=== PATIENT | female | born 1985 | race Caucasian/White ===

== ENCOUNTER 2022-07-11 11:32 | Emergency (ER) | payer BC, SELFPAY ==
[2022-07-11 11:40] VITALS: BP 99/64; PULSE 78; RESP 18; TEMP 36.1; O2SAT 99; BMI 25.1
--- NOTE | 2022-07-11 12:36 | ED.GENADULT ---
HPI - General Adult General Chief complaint: Weakness Stated complaint: Passed out at home Time Seen by Provider: 07/11/22 12:11 History of Present Illness HPI narrative: This 36-year-old female comes in reporting lightheadedness that resulted in a syncopal event. She states she was riding in a car and began to feel lightheaded and warm. When she arrived home she thought she could make it into the house so she jumped out from the car at which time she became more lightheaded and had loss of consciousness. Her significant other was there to catcher so she did not fall and hurt herself. She laid on the ground and appeared to be rather pale in her complexion. She was incontinent of urine. She regained consciousness in about 30 seconds. She does not have a prior history of syncope. She denies having any alcohol or street drugs. She has not had any fevers or sign of infection. She does not take any antihypertensive medicines. She is on some psychotropic medicines that are not new for her. She states that she did have breakfast and fluids this morning. Related Data Home Medications Medication Instructions Recorded Confirmed Abilify 07/11/22 Wellbutrin 07/11/22 Allergies Allergy/AdvReac Type Severity Reaction Status Date / Time No Known Drug Allergies Allergy Verified 07/11/22 11:45 Review of Systems Status of ROS: Reports: 10 or more systems reviewed and unremarkable except as noted in History and below Narrative: Constitutional: No fevers, no weight gain or loss. Eyes: No discharge. No vision changes. HENT: No congestion, no sore throat, no ear pain. Cardiovascular: No chest pain, no palpitations. Respiratory: No shortness of breath, no wheezes, no cough. Gastrointestinal: No abdominal pain, no vomiting, no diarrhea. Genitourinary: No dysuria, no hematuria. Musculoskeletal: Normal range of motion. Skin: No rashes, no pruritis. Neurological: No weakness, sensory change, speech change. Syncopal event as described above. Endo/Heme/Allergies: No bruising or bleeding. No polydipsia. Pysch: no suicidality, no anxiety, no insomnia. All other systems reviewed and are negative. PFSH PFSH Social History Smoking Status: Smoker, status unknown How often do you have a drink containing alcohol: never AUDIT-C Alcohol total score: 0 Non-prescribed substance use: denies use Exam Narrative: Exam Narrative: Constitutional: Well-developed, well-nourished, no acute distress. HEENT: Normocephalic, atraumatic. Neck: Normal range of motion. Nontender. Supple. Heart: Regular. No murmurs. Normal rate. Intact distal pulses. Lungs: Clear to auscultation. No chest discomfort. No wheezes, rhonchi, or rales. Abdomen: Normal bowel sounds. Nontender. No rebound tenderness. Genitalia: Deferred. Back: No midline tenderness. Normal range of motion. Extremities: Normal range of motion. No injury. Skin: Intact. No rash. Warm. No erythema or pallor. Neurologic: No altered sensation. No weakness. Alert and oriented. Psychiatric: No suicidality. No anxiety or depression. No insomnia. Nursing notes and vitals signs are reviewed. Const: Vital Signs, click to edit/add: Vital Signs - 24 hr 07/11/22 11:40 Temperature 96.9 F L Pulse Rate [Right Pulse Oximeter] 78 Respiratory Rate 18 Blood Pressure [Ri ght Upper Arm] 99/64 Pulse Oximetry 99 Oxygen Delivery Me thod Room Air Course Vital Signs Vital signs: Initial Vital Signs Temperature 96.9 F L 07/11/22 11:40 Temperature Source Temporal Artery Scan 07/11/22 11:40 Pulse Rate 78 07/11/22 11:40 Respiratory Rate 18 07/11/22 11:40 Blood Pressure 99/64 07/11/22 11:40 Blood Pressure Mean 75 07/11/22 11:40 Blood Pressure Position Sitting 07/11/22 11:40 Pulse Oximetry 99 07/11/22 11:40 Oxygen Delivery Method 07/11/22 11:40 Vital Signs Temperature 96.9 F L 07/11/22 11:40 Pulse Rate 78 07/11/22 11:40 Respiratory Rate 18 07/11/22 11:40 Blood Pressure 99/64 07/11/22 11:40 Pulse Oximetry 99 07/11/22 11:40 Oxygen Delivery Method 07/11/22 11:40 Temperature 96.9 F L 07/11/22 11:40 Pulse Rate 78 07/11/22 11:40 Respiratory Rate 18 07/11/22 11:40 Blood Pressure 99/64 07/11/22 11:40 Pulse Oximetry 99 07/11/22 11:40 Oxygen Delivery Method 07/11/22 11:40 Medical Decision Making MDM Narrative Medical decision making narrative: This patient had a syncopal event prior to arrival. She arrives with normal vital signs however her blood pressure is somewhat low at 99/64. I did discuss diagnostic and treatment options with the patient. She agreed to have an IV placed received fluids and check her blood. Three attempts were made to insert an IV but these were unsuccessful. At this point the patient decided against further attempts. She is maintaining normal vital signs and feels back to normal. Most likely given her normal state of health these lab results are not likely to explain her lightheadedness and syncopal event today. I did describe signs and symptoms that would indicate a need for return and re-evaluation. Discharge Plan Discharge Clinical Impression: Syncope Patient Disposition: Home, Self-Care Condition: Improved Additional Instructions: Take plenty of fluids. Increase activity as tolerated. Follow up with MD or return if recurrent or worsening symptoms happen. Prescriptions: No Action Wellbutrin Abilify Follow Up/Referrals: Provider,Not a Local [Primary Care Provider] - Stand Alone Forms: [employer] Info Instructions
--- NOTE | 2022-07-11 13:23 | ED.NURSE ---
Anesthesia called for difficult IV start. Warm blankets applied to BUE.
[2022-07-11 14:24] VITALS: BP 107/72; PULSE 78; RESP 18; TEMP 36.1
--- NOTE | 2022-07-11 14:25 | ED.NURSE ---
Anesthesia unable to start IV with U/S guidance. Pt refusing additional bloodwork/treatment. informed. spoke with Pt. VSS. Pt d/c'ed ambulatory, with SO, tolerates well.
== END 2022-07-11 14:25 | disposition home or self-care (01) ==
PROVIDERS: Emergency Provider Emergency Medicine Emergency Medical Services
DX: R55 Syncope and collapse (principal)
CPT/HCPCS: 80048; 85025; 99283; 99284

== ENCOUNTER 2024-05-30 10:52 | Outpatient (CLI) | payer BC, SELFPAY ==
--- OUTSIDE RECORDS SUMMARY | 2024-05-31 13:47 | XMS_ITS | Clinical Summary ---
Author Organization [place] Address [address] [facility] [place] [address] Care Team Providers Care Electrical Assembler Name Role Phone Esha Vicente MD Primary Care Provider [phone] Allergies No known active allergies Medications Medication Sig Dispensed Refills Start Date End Date Status busPIRone (BUSPAR) 5 MG tablet Take 5 mg by mouth 2 times daily Active LamoTRIgine (LAMICTAL) 200 MG TB24 Take 200 mg by mouth daily 12/28/2018 Active desvenlafaxine (PRISTIQ) 50 MG 24 hr tablet Take 50 mg by mouth daily 12/28/2018 Active LORazepam (ATIVAN) 1 MG tablet Take 1 mg by mouth daily as needed 12/28/2018 Active norgestim-eth estrad triphasic (ORTHO TRI-CYCLEN/TRI-SPRINT EC) 0.18/0.215/0.25 MG-35 MCG tabletIndications:Irr egular menses Take 1 tablet by mouth daily 84 tablet 3 02/07/2019 Active Active Problems Problem Noted Date Diagnosed Date Severe episode of recurrent major depressive disorder, without psychotic features 01/07/2017 JIMMY (generalized anxiety disorder) 01/07/2017 HSV (herpes simplex virus) infection 03/11/2016 Overview: Start at 34 weeks due to deliveries at 37 weeks. CARDIOVASCULAR SCREENING; LDL GOAL LESS THAN 160 08/04/2010 ASCUS on Pap smear 04/02/2009 Overview: 07/31/08:Pap--ASCUS, neg HPV. Repeat pap 1 year. Migraine headache 07/31/2008 Overview: May 02, 2010 improved. (Problem list name updated by automated process. Provider to review and confirm.) Tobacco abuse 04/04/2008 Overview: May 02, 2010 addressed. Resolved Problems Problem Noted Date Diagnosed Date Resolved Date Severe episode of recurrent major depressive disorder, without psychotic features 11/04/201612/2016 Supervision of other normal , antepartum 04/23/2016 01/05/2017 GBS (group B Streptococcus c arrier), +RV culture, currently 12/17/2014 02/05/2015 Encounter for supervision of other normal 10/10/2009 05/02/2010 Overview: Diagnosis updated by automated process. Provider to review and confirm. ASCUS on Pap smear 08/07/2008 05/200 9 Overview: HPV positive- low ridk- dx pap follow up in 08/200906/28/2009:Pap--ASCUS, +High Risk HPV outside location 01/15/11:Pap--NIL 05/09/13:Pap--NIL. Consider Q3 year pap screening after 1 more consecutive normal pap result Neck pain 07/31/2008 05/02/2010 Overview: July 31, 2008 probably from carrying her 36 # son. Activity as tolerated, follow up if not better after PT, sooner if worse, if resolved follow up will be prn. Immunizations Name Administration Dates Next Due HepB 07/11/2002,12/10/2001,06/03/2000 Historical DTP/aP 04/08/1991, 7,06/14/1986, 986,02/06/1986 Influenza (H1N1) 08/06/2009 Influenza (IIV3) PF 06/24/2011, 0,07/10/2009, 008,08/31/2007,07/31/2005 Influenza Vaccine >6 months,quad, PF ,06/25/2017,07/03/2016, 014 MMR 06/01/1997,03/14/1987 Mantoux Tuberculin Skin Test 08/14/2014,07/07/20 11,06/24/2011 OPV, trivalent, live 04/08/1991,06/03/19 87,04/10/1986, 986 TDAP Vaccine (Adacel) 05/23/2016,11/13/2014,06/2008 Tetanus 09/12/2009,10/05/1997,06/01/1997 Varicella 05/17/1999,03/08/1999 Family History Medical History Relation Comments Genitourinary Problems Father kidney pr oblems Alcohol/Drug Maternal Grandfather alcohol Depression Maternal Grandfather Breast Cancer Paternal Grandmother Relation Status Comments Daughter Alive adopted out Father Alive Maternal Grandfather Alive Maternal Grandmother Alive Mother Alive Paternal Grandfather Alive Paternal Grandmother Alive Son 1 Alive Son 2 Alive Social History Tobacco Use Types Packs/Day Years Used Date Smoking Tobacco: Every Day Cigarettes Other Smokeless Tobacco: Never Tobacco Cessation:Ready to Q uit: Yes; Counseling Given: Yes Comments:Patient using E-cig Alcohol Use Standard Drinks/Week Comments Yes 0 (1 standard drink = 0.6 oz pur e alcohol) 1-2 liter/week of whiskey PHQ-2 Answer Date Recorded PHQ-2 Score 5 10/12/2018 Adolescent Education Answer Date Record ed Getting School Help Needed Not on file 07/12 Sex and Gender Information Value Date Recorded Sex Assigned at Not on file Gender Identity Not on file Sexual Orientation Not on file Last Filed Vital Signs Vital Sign Reading Time Taken Comments Blood Pressure 114/81 10/06/2023 12:16 AM REGISTERED NURSE CARDIAC Pulse 95 10/06/2023 12:16 AM REGISTERED NURSE CARDIAC Temperature 35.9 ??C (96.7 ??F) 10/05/2023 8:19 PM CS T Respiratory Rate 20 10/05/2023 8:19 PM REGISTERED NURSE CARDIAC Oxygen Saturation 97% 10/06/2023 12:16 AM REGISTERED NURSE CARDIAC Inhaled Oxygen Concentration - - Weight 78.1 kg (172 lb 4 oz) 02/07/2019 2:01 PM CDT Height 172.7 cm (5' 8) 02/07/2019 2:01 PM CDT Body Mass Index 26.19 02/07/2019 2:01 PM CDT Plan of Treatment Health Maintenance Due Date Last Done Comments ADVANCE CARE PLANNING 1985 ANNUAL REVIEW OF HM ORDERS 1985 Pneumococcal Vaccine: Pediatrics (0 to 5 Years) and At-Risk Patients (6 to 64 Years) (1 of 2 - PCV) 12/07/1991 PHQ-9 09/15/2018 03/16/2018, 11/2017, 10/30/2017, Additional history exists HPV TEST 03/16/2021 03/16/2018 PAP 03/16/2021 03/16/2018, 06/05, 05/09/2013, Additional history exists YEARLY PREVENTIVE VISIT 08/16/2022 08/16/20, 03/16/2018, 10/30/2017, Additional history exists COVID-19 Vaccine ( season) 2023 02/13/2021, 01/23/2021 INFLUENZA VACCINE (#1) 2024 , 08/03/2020, 11/11/2019, Additional history exists DTAP/TDAP/TD IMMUNIZATION (10 - Td or Tdap) 05/23/2026 05/23/2016, 11/13/2014, 09/12/2009, Additional history exists GLUCOSE 10/05/2026 10/05/2023, 02/2018, 02/20/2017, Additional history exists HEPATITIS B IMMUNIZATION Completed 002, 07/11/2002, 07/11/2002, Additional history exists HEPATITIS C SCREENING Completed 07/31/2008, 008 MIGRAINE ACTION PLAN Completed 03/04/2013 DEPRESSION ACTION PLAN Completed 8, 03/16/2018, 01/05/2017, Additional history exists HIV SCREENING Completed 02/07/2019, 04/2016, 06/19/2014, Additional history exists HPV IMMUNIZATION Aged Out No longer e ligible based on patient's age to complete this topic MENINGITIS IMMUNIZATION Aged Out No l onger eligible based on patient's age to complete this topic RSV MONOCLONAL ANTIBODY Aged Out No l onger eligible based on patient's age to complete this topic Procedures Procedure Name Priority Date/Time Associated Diagnosis Comments BASIC METABOLIC PANEL STAT 10/05/2023 10:40 PM REGISTERED NURSE CARDIAC HIV ANTIGEN ANTIBODY COMBO Routine 02/07/2019 2:53 PM CDT Screen for STD (sexually transmitted disease) HPV HIGH RISK TYPES DNA CERVICAL Routine 03/16/2018 11:15 AM CDT Screening for human papillomavirus PAP IMAGED THIN LAYER SCREEN Routine 03/16/2018 11:06 AM CDT Screening for cervical cancer HCL HEPATITIS C VIRUS ANTIBODY Routine 07/31/2008 3:11 PM CDT STD (Sexually Transmitted Disease) from Last 3 Months or Most Recently Relevant to Health Maintenance Results * Basic metabolic panel (10/05/2023 10:40 PM REGISTERED NURSE CARDIAC) Sodium 138 135 - 145 mmol/L 10/05/2023 11:10 PM REGISTERED NURSE CARDIAC [facility] Comment:Reference intervals for this test were updated on 06/30/2023 to more accurately reflect our healthy population. There may be differences in the flagging of prior results with similar values performed with this method. Interpretation of those prior results can be made in the context of the updated reference intervals. Potassium 3.8 3.4 - 5.3 mmol/L 10/05/2023 11:10 PM REGISTERED NURSE CARDIAC [facility] Chloride 100 98 - 107 mmol/L 10/05/2023 11:10 PM REGISTERED NURSE CARDIAC [facility] Carbon Dioxide (CO2) 24 22 - 29 mmol/L 10/05/2023 11:10 PM REGISTERED NURSE CARDIAC [facility] Anion Gap 14 7 - 15 mmol/L 10/05/2023 11:10 PM REGISTERED NURSE CARDIAC [facility] Urea Nitrogen 11.1 6.0 - 20.0 mg/dL 10/05/2023 11:10 PM REGISTERED NURSE CARDIAC [facility] Creatinine 0.70 0.51 - 0.95 mg/dL 10/05/2023 11:10 PM REGISTERED NURSE CARDIAC [facility] GFR Estimate >90 >60 mL/min/1. 73m2 10/05/2023 11:10 PM REGISTERED NURSE CARDIAC [facility] Calcium 9.1 8.6 - 10.0 mg/dL 10/05/2023 11:10 PM REGISTERED NURSE CARDIAC N [facility] Glucose 92 70 - 99 mg/dL 10/05/2023 11:10 PM REGISTERED NURSE CARDIAC [facility] Blood BLOOD SPECIMEN / Unknown Venipuncture / Unknown 10/05/2023 10:40 PM REGISTERED NURSE CARDIAC 10/05/2023 10:44 PM REGISTERED NURSE CARDIAC Lita Sher MD LAB - BLOOD ORDERABL ES [facility] [address] [place], [place] [id number] [place] [address] * HIV Antigen Antibody Combo (02/07/2019 2:53 PM CDT) HIV Antigen Antibody Combo Nonreactive NR^Nonrea ctive 02/08/2019 11:40 AM CDT [facility] Comment:HIV-1 p24 Ag & HIV-1 /HIV-2 Ab Not Detected Blood specimen (specimen) 02/07/2019 2:53 PM CDT 02/07/2019 2:54 PM CDT Esha Vicente MD LAB - BLOOD ORDERABL ES [facility] [address] [place] [address] * HPV High Risk Types DNA Cervical (03/16/2018 11:15 AM CDT) HPV Source SurePath 03/16/2018 11:06 AM CDT [facility] HPV 16 DNA Negative NEG^Nega tive 03/22/2018 12:40 PM CDT [facility] HPV 18 DNA Negative NEG^Nega tive 03/22/2018 12:40 PM CDT [facility] Other HR HPV Negative NEG^Nega tive 03/22/2018 12:40 PM CDT [facility] Final Diagnosis This patient's sample is negative for HPV DNA. 03/22/2018 12:40 PM CDT [facility] Comment: This test was developed and its performance characteristics determined by the [facility]. It has not been cleared or approved by the FDA. The laboratory is regulated under CLIA as qualified to perform high-complexity testing. This test is used for clinical purposes. It should not be regarded as investigational or for research. (Note) METHODOLOGY: ??The Petra naseem 4800 system uses automated extraction, simultaneous amplification of HPV (L1 region) and beta-globin, ?? followed by ??real time detection of fluorescent labeled HPV and beta globin using specific oligonucleotide probes . The test specifically identifies types HPV 16 DNA and HPV 18 DNA while concurrently detecting the rest of the high risk types (31, 33, 35, 39, 45, 51, 52, 56, 58, 59, 66 or 68). COMMENTS: ??This test is not intended for use as a screening device for women under age 30 with normal cervical cytology. ??Results should be correlated with cytologic and histologic findings. Close clinical followup is recommended. Specimen Description Cervical Cells 03/19/2018 9:19 AM CDT [facility] Comment:[id number] Cervical Cells 03/16/2018 11 :15 AM CDT 03/16/2018 11:41 AM CDT Esha Vicente MD LAB - BLOOD ORDERABL ES [id number] [place] [address] * Pap imaged thin layer screen with HPV - recommended age 30 - 65 (03/16/2018 11:06 AM CDT) PAP JON Shannon Report Patient Name: SCARLET ENGLISH MR#: [id number] Specimen #: [id number] Collected: 03/16/2018 Received: 03/17/2018 Reported: 03/18/2018 10:21 Ordering Phy(s): ESHA VICENTE For improved result formatting, select 'View Enhanced Report Format' under Linked Documents section. SPECIMEN/STAIN PROCESS: Pap imaged thin layer prep screening (Surepath, FocalPoint with guided screening) ? Pap-Cyto x 1, HPV ordered x 1 SOURCE: Cervical, endocervical Pap imaged thin layer prep screening (Surepath, FocalPoint with guided screening) SPECIMEN ADEQUACY: Satisfactory for evaluation. -Transformation zone component absent. CYTOLOGIC INTERPRETATION: Negative for intraepithelial lesion or malignancy Electronically signed out by: STERLING Gage (ASCP) Processed and screened at [facility] CLINICAL HISTORY: LMP: 02/27/2018 Previous normal pap Date of Last Pap: 06/19/2014, Papanicolaou Test Limitations: ??Cervical cytology is a screening test with limited sensitivity; regular screening is critical for cancer prevention; Pap tests are primarily effective for the diagnosis/preventi on of squamous cell carcinoma, not adenocarcinomas or other cancers. TESTING LAB LOCATION: [address] [phone] COLLECTION SITE: Client: ?? [facility] Location: [facility] [place] Cytologic material (specimen) 03/16/2018 11:06 AM CDT 03/17/2018 9:30 AM CDT Esha Vicente MD LAB - [facility] SPECIMEN [facility] * HCV ANTIBODY (07/31/2008 3:11 PM CDT) Hepatitis C Antibody Negative NEG [facility] 07/31/2008 3:11 PM CDT 07/31/2008 3:12 PM CDT Esha Vicente MD LABORATORY [facility] from Last 3 Months or Most Recently Relevant to Health Maintenance Care Teams Electrical Assembler Relationship Specialty Start Date End Date Esha Vicente MD PCP - General Family Practice 02/10/17 Andres Gibbons MA, PSY[facility]IATR[facility] [address] [place] [address]. [id number] Therapist Licensed Mental Health 10/05/23
--- OUTSIDE RECORDS SUMMARY | 2024-05-31 13:48 | XMS_ITS | Encounter Summary ---
Author Organization [place] Address [address] [facility] [place] [address] Care Team Providers Care Bottom Filler Name Role Phone Esha Vicente MD Primary Care Provider [phone] Esha Vicente MD Unavailable [phone] Esha Vicente MD Unavailable [phone] Reason for Visit * Reason Onset Date Comments Refill Request 10/14/2017 Encounter Details Date Type Department Care Team (Late st Contact Info) Description 10/14/2017 MyC Evan Tiwari [address] [phone] Yuridia Little, JEWELLERY DESIGNER BAKING FACTORY WORKER [address] [place] [address] Refill Request Social History Tobacco Use Types Packs/Day Years Used Date Smoking Tobacco: Former Cigarettes Smokeless Tobacco: Never Comments:smoking 20cig/day- down to 4cig/day with Alcohol Use Standard Drinks/Week Comments Yes 0 (1 standard drink = 0.6 oz pure alcohol) 1-2 drinks weekly- quit with Sex and Gender Information Value Date Recorded Sex Assigned at Not on file Gender Identity Not on file Sexual Orientation Not on file documented as of this encounter Miscellaneous Notes * Telephone Encounter - Esha Vicente MD - 10/14/2017 12:57 PM CSTMessage from MyChart: Yuridia Little APRN CNP Wed Oct 14, 2017 12:37 PM ----- Message ----- From: Scarlet Dalton Sent: 10/14/2017 12:26 PM To: All Andrew Md's Subject: Medication Renewal Request Original authorizing provider: PRAKASH Raman CNP would like a refill of the following medications: LORazepam (ATIVAN) 0.5 MG tablet [Yuridia Little APRN CNP] Preferred pharmacy: [facility] [id number] [place] [address] Comment: Medication renewals requested in this message routed to other providers: sertraline (ZOLOFT) 50 MG tablet [Esha Vicente MD] S 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 documented in this encounter Plan of Treatment Not on file documented as of this encounter Visit Diagnoses Diagnosis JIMMY (generalized anxiety disorder) Generalized anxiety disorder documented in this encounter Additional Health Concerns Assessment Noted Time PHQ-9 Depression Total Score: 14 017 7:19 AM CDT documented as of this encounter Care Teams Bottom Filler Relationship Specialty Start Date End Date Esha Vicente MD PCP - General Family Practice 02/10/17 [place] [address] [place] [address] PCP - Assigned PCP 06/22/11 12/07/18 [place] [address] [place] [address] Assigned PCP 07/08/12 02/08/22 Andres Gibbons MA, [address] [address] Therapist Licensed Mental Health 10/05/23 documented as of this encounter
--- OUTSIDE RECORDS SUMMARY | 2024-05-31 13:48 | XMS_ITS | Encounter Summary ---
Author Organization [place] Address [address] [facility] [place] [address] Care Team Providers Care Avionics Systems Technician Name Role Phone Esha Vicente MD Primary Care Provider Esha Vicente MD Unavailable [phone] Esha Vicente MD Unavailable [phone] Encounter Details Date Type Department Care Team (Late st Contact Info) Description 01/04/2018 Diana Medical Advice M [address] [phone] Caroline Earyl RN Social History Tobacco Use Types Packs/Day Years Used Date Smoking Tobacco: Every Day Cigarettes Smokeless Tobacco: Never Alcohol Use Standard Drinks/Week Comments Yes 0 (1 standard drink = 0.6 oz pure alcohol) 1-2 drinks weekly- quit with Sex and Gender Information Value Date Recorded Sex Assigned at Not on file Gender Identity Not on file Sexual Orientation Not on file documented as of this encounter Plan of Treatment Not on file documented as of this encounter Visit Diagnoses Not on filedocumented in this encounter Additional Health Concerns Assessment Noted Time PHQ-9 Depression Total Score: 4 01/06/20 18 7:48 AM CDT documented as of this encounter Care Teams Avionics Systems Technician Relationship Specialty Start Date End Date Esha Vicente MD PCP - General Family Practice 02/10/17 [place] [address] [facility] [place] [address] PCP - Assigned PCP 06/22/11 12/07/18 [place] [address] [facility] [place] [address] Assigned PCP 07/08/12 02/08/22 Andres Gibbons MA, [address] [address] Therapist Licensed Mental Health 10/05/23 documented as of this encounter
--- OUTSIDE RECORDS SUMMARY | 2024-05-31 13:48 | XMS_ITS | Encounter Summary ---
Author Organization [place] Address [address] [facility] [place] [address] Care Team Providers Care Cryptanalyst Name Role Phone Esha Vicente MD Primary Care Provider [phone] None Primary Care Provider Unavailabl Esha Vasquez MD Primary Care Provider None Primary Care Provider UnavailEsha Watkins MD Primary Care Provider [phone] Esha Vicente MD Unavailable Esha Vicente MD Unavailable [phone] Encounter Details Date Type Department Care Team (Late st Contact Info) Description 08/22/2006 [facility] Ekaterina Pantoja MD [facility] [address] ([address] [place]) [place] [address] Antepartum Outpatient Record Social History Tobacco Use Types Packs/Day Years Used Date Smoking Tobacco: Every Day Cigarettes Other Smokeless Tobacco: Never Comments:Patient using E-cig Alcohol Use Standard Drinks/Week Comments Yes 0 (1 standard drink = 0.6 oz pur e alcohol) 1-2 liter/week of whiskey Sex and Gender Information Value Date Recorded Sex Assigned at Not on file Gender Identity Not on file Sexual Orientation Not on file documented as of this encounter Plan of Treatment Not on file documented as of this encounter Visit Diagnoses Not on filedocumented in this encounter Care Teams Cryptanalyst Relationship Specialty Start Date End Date Esha Vicente MD PCP - General 04/14/06 05/22/16 None PCP - General 05/23/16 09/17/16 Esha Vicente MD PCP - General Family Practice 09/18/16 12/28/16 None PCP - General 12/29/16 02/09/17 Esha Vicente MD PCP - General [facility] Practice 02/10/17 [place] [address] [place] [address] PCP - Assigned PCP 06/22/11 12/07/18 [place] [address] [place] [address] Assigned PCP 07/08/12 02/08/22 Andres Gibbons MA, [facility] [employer] [address] [address] Therapist Licensed Mental Health 10/05/23 documented as of this encounter
--- OUTSIDE RECORDS SUMMARY | 2024-05-31 13:48 | XMS_ITS | Encounter Summary ---
Author Organization [place] Address [address] [place] [address] Care Team Providers Care Casing Tester Name Role Phone Esha Vicente MD Primary Care Provider [phone] Primary Care Provider Unavailabl Esha Vasquez MD Primary Care Provider [phone] Primary Care Provider UnavailEsha Watkins MD Primary Care Provider + [phone] Esha Vicente MD Unavailable [phone] Esha Vicente MD Unavailable [phone] Encounter Details Date Type Department Care Team (Late st Contact Info) Description 08/16/2006 [facility] Dian Sheppard MD NO INFO AVAILABLE Antepartum Outpatient Record Social History Tobacco Use [...] on filedocumented in this encounter Care Teams Casing Tester Relationship Specialty Start Date End Date Esha Vicente MD PCP - General 04/14/06 05/22/16 None PCP - General 05/23/16 09/17/16 Esha Vicente MD PCP - General Family Practice 09/18/16 12/28/16 None PCP - General 12/29/16 02/09/17 Esha Vicente MD PCP - General Family Practice 02/10/17 [place] [address] [facility] [place] [address] PCP - Assigned PCP 06/22/11 12/07/18 [place] [address] [facility] [place] [address] Assigned PCP 07/08/12 02/08/22 Andres Gibbons MA, [facility] [employer] [address] [address] Therapist Licensed Mental Health 10/05/23 documented as of this encounter
--- OUTSIDE RECORDS SUMMARY | 2024-05-31 13:48 | XMS_ITS | Encounter Summary ---
Author Organization [place] Address [address] [facility] [place] [address] Care Team Providers Care Operations Logistics Analyst Name Role Phone Esha Vicente MD Primary Care Provider [phone] Esha Vicente MD Unavailable [phone] Esha Vicente MD Unavailable [phone] Encounter Details Date Type Department Care Team (Late st Contact Info) Description 10/21/2017 [facility] [address] [id number] Citlali Manzano, JESSICA Social History Tobacco Use Types Packs/Day Years [...] Telephone Encounter - Esha Vicente MD - 10/22/2017 9:51 AM CST Results reviewed, she denied suicidal ideation and any intent for self harm to harm to others. DENTIAL HOUSEKEEPER documented in this encounter Plan of Treatment Not on file documented as of this encounter Visit Diagnoses Not on filedocumented in this encounter Additional Health Concerns Assessment Noted Time PHQ-9 Depression Total Score: 21 018 1:03 PM RESIDENTIAL HOUSEKEEPER documented as of this encounter Care Teams Operations Logistics Analyst Relationship Specialty Start Date End Date Esha Vicente MD PCP - General Family Practice 02/10/17 [place] [address] [facility] [place] [address] PCP - Assigned PCP 06/22/11 12/07/18 [place] [address] [facility] [place] [address] Assigned PCP 07/08/12 02/08/22 Andres Gibbons MA, [facility] Counsel[facility] [address] [place] [address]. [address] Therapist Licensed Mental Health 10/05/23 documented as of this encounter
--- OUTSIDE RECORDS SUMMARY | 2024-05-31 13:48 | XMS_ITS | Encounter Summary ---
Author Organization [place] Address [address] [facility] [place] [address] Care Team Providers Care Lens Molder Name Role Phone Esha Vicente MD Primary Care Provider Esha Vicente MD Unavailable [phone] Esha Vicente MD Unavailable [phone] Reason for Visit * Reason Onset Date Comments Refill Request 10/14/2017 Encounter Details Date Type Department Care Team (Late st Contact Info) Description 10/14/2017 My[facility] Evan M [address] [phone] [place] [address] [place] [address] Refill Request Social History Tobacco Use Types [...] encounter Miscellaneous Notes * Telephone Encounter - Jayant Yorki - 10/14/2017 3:27 PM CST rx faxed. Ange Saba, Station Coupon Redemption Clerk TRE ARTS PROFESSOR * Telephone Encounter - Caroline Early, RN - 10/14/2017 1:03 PM CSTMessage from MyChart: Original authorizing provider: MD Scarlet Cam would like a refill of the following medications: sertraline (ZOLOFT) 50 MG tablet [Esha Vicente MD] [id number] [employer] [facility] [facility] Comment: Requesting a refill on these two medications. Not sure if my first request was successful or not. Ineed to change the pharmacy to the [facility] in [place] - pharmacy # [id number] ([address] [employer] [facility]) Thank you Medication renewals requested in this message routed to other providers: LORazepam (ATIVAN) 0.5 MG tablet [Yuridia Little, [facility]] TRE ARTS PROFESSOR documented in this encounter Plan of Treatment Not on file documented as of this encounter Visit Diagnoses Diagnosis JIMMY (generalized anxiety disorder) Generalized anxiety disorder documented in this encounter Additional Health Concerns Assessment Noted Time PHQ-9 Depression Total Score: 14 017 7:19 AM CDT documented as of this encounter Care Teams Lens Molder Relationship Specialty Start Date End Date Esha Vicente MD PCP - General Family Practice 02/10/17 [place] [address] [facility] [address] PCP - Assigned PCP 06/22/11 12/07/18 [place] [address] [facility] [place] [address] Assigned PCP 07/08/12 02/08/22 Andres Gibbons MA, [facility] [address] [place] [address]. [id number] Therapist Licensed Mental Health 10/05/23 documented as of this encounter
--- OUTSIDE RECORDS SUMMARY | 2024-05-31 13:48 | XMS_ITS | Encounter Summary ---
Author Organization [place] Address [address] [facility] [place] [address] Care Team Providers Care Dining Room Maid Name Role Phone Esha Vicente MD Primary Care Provider [phone] None Primary Care Provider Unavailabl Esha Vasquez MD Primary Care Provider [phone] None Primary Care Provider UnavailEsha Watkins MD Primary Care Provider [phone] Esha Vicente MD Unavailable [phone] Esha Vicente MD Unavailable [phone] Encounter Details Date Type Department Care Team (Late st Contact Info) Description 08/17/2006 [facility] Dian Sheppard MD NO INFO AVAILABLE Antepartum [...] on filedocumented in this encounter Care Teams Dining Room Maid Relationship Specialty Start Date End Date Esha Vicente MD PCP - General 04/14/06 05/22/16 None PCP - General 05/23/16 09/17/16 Esha Vicente MD PCP - General Family Practice 09/18/16 12/28/16 None PCP - General 12/29/16 02/09/17 Esha Vicente MD PCP - General Family Practice 02/10/17 [place] [address] [facility] [place] [address] PCP - Assigned PCP 06/22/11 12/07/18 [place] [address] [facility] [place] [address] Assigned PCP 07/08/12 02/08/22 Andres Gibbons MA, [facility] [employer] [address] [address] Therapist Licensed Mental Health 10/05/23 documented as of this encounter
--- OUTSIDE RECORDS SUMMARY | 2024-05-31 13:48 | XMS_ITS | Encounter Summary ---
Author Organization [place] Address [address] [facility] [place] [address] Care Team Providers Care Communications Associate Name Role Phone Esha Vicente MD Primary Care Provider Esha Vicente MD Unavailable [phone] Esah Vicente MD Unavailable [phone] Reason for Visit * Reason Onset Date Comments Refill Request 10/14/2017 Encounter Details Date Type Department Care Team (Late st Contact Info) Description 10/14/2017 MyC Evan M [address] [phone] [place] [address] [place] [address] Refill Request Social History Tobacco Use Types [...] documented as of this encounter Care Teams Communications Associate Relationship Specialty Start Date End Date Esha Vicente MD PCP - General Family Practice 02/10/17 [place] [address] [place] [address] PCP - Assigned PCP 06/22/11 12/07/18 [place] [address] [facility] [place] [address] Assigned PCP 07/08/12 02/08/22 Andres Gibbons MA, [facility] [address] [place] [address]. [address] Therapist Licensed Mental Health 10/05/23 documented as of this encounter
--- OUTSIDE RECORDS SUMMARY | 2024-05-31 13:48 | XMS_ITS | Encounter Summary ---
Author Organization [place] Address [address] [facility] [place] [address] Care Team Providers Care Ledge Man Name Role Phone Esha Vicente MD Primary Care Provider Esha Vicente MD Unavailable Esha Vicente MD Unavailable [phone] Reason for Visit * Reason Onset Date Comments Outpatient 02/06/2018 Encounter Details Date Type Department Care Team ([facility] st Contact Info) Description 02/06/[address] [facility] Behavioral Health Intake [address] [place] [phone] Generic, Behavioral Intake, Outpatient Social History Tobacco Use Types Packs/Day Years [...] encounter Miscellaneous Notes * Telephone Encounter - Laura Heller - 02/08/2018 9:54 AM CDT Pt has active bens, in basket ref sent ref order from Dr Smith in [facility]. Order made ready to sched for NG-14 * Telephone Encounter - Hortencia Matamoros - 02/06/2018 8:51 PM CDT S: [facility] calling with a 32 yr old female seeking partial program referral B: pt is a 32 yr old female seeking partial program referral. Pt has had an increase in depression and anxiety. Pt has passive SI thoughts. Pt took 4 tylenol today as a gesture of Wanting to seek help. Pt is struggling with substance abuse. Pt recently stopped meth. Since quitting pt has began drinking 1-2 L of whiskey per week. Pt also recently quit smoking cigarettes. Pt does smoke marijuana a couple of times a week. Pt's family has a hx of bipolar. Pt has not been diagnosed. Pt is currently taking Zoloft and Lorazepam through her primary physician. Pt wants to get help. [facility] informed pt that she would have to be substance free in the program A: vol R: phone note completed and placed on the OP service board for follow up documented in this encounter Plan of Treatment Not on file documented as of this encounter Visit Diagnoses Not on filedocumented in this encounter Additional Health Concerns Assessment Noted Time PHQ-9 Depression Total Score: 4 01/06/20 18 7:48 AM CDT documented as of this encounter Care Teams Ledge Man Relationship Specialty Start Date End Date Esha Vicente MD PCP - General Family Practice 02/10/17 [place] [address] [facility] [place] [address] PCP - Assigned PCP 06/22/11 12/07/18 [place] [address] [facility] [place] [address] Assigned PCP 07/08/12 02/08/22 Andres Gibbons MA, [facility] [address] [place] [address]. [address] Therapist Licensed Mental Health 10/05/23 documented as of this encounter
--- OUTSIDE RECORDS SUMMARY | 2024-05-31 13:48 | XMS_ITS | Encounter Summary ---
Author Organization [place] Address [address] [facility] [place] [address] Care Team Providers Care Rent And Miscellaneous Remittance Clerk Name Role Phone Esha Vicente MD Primary Care Provider [phone] None Primary Care Provider UnavailEsha Watkins MD Primary Care Provider [phone] None Primary Care Provider UnavailEsha Watkins MD Primary Care Provider [phone] Esha Vicente MD Unavailable [phone] Esha Vicente MD Unavailable [phone] Encounter Details Date Type Department Care Team (Late st Contact Info) Description 08/10/2006 [facility] [place] [address] [place], [place] [address] Antepartum Outpatient Record Social History Tobacco Use [...] on filedocumented in this encounter Care Teams Rent And Miscellaneous Remittance Clerk Relationship Specialty Start Date End Date Esha Vicente MD PCP - General 04/14/06 05/22/16 None PCP - General 05/23/16 09/17/16 Esha Vicente MD PCP - General Family Practice 09/18/16 12/28/16 None PCP - General 12/29/16 02/09/17 Esha Vicente MD PCP - General Family Practice 02/10/17 [place] [address] [facility] [place] [address] PCP - Assigned PCP 06/22/11 12/07/18 [place] [address] [facility] [place] [address] Assigned PCP 07/08/12 02/08/22 Andres Gibbons MA, [facility] [employer] [address] [address] Therapist Licensed Mental Health 10/05/23 documented as of this encounter
--- OUTSIDE RECORDS SUMMARY | 2024-05-31 13:48 | XMS_ITS | Clinical Summary ---
Author Organization [facility] Address [place], [place] [address] Care Team Providers Care Brick Layer Name Role Phone Hortencia Brasher MD Unavail able Eli Roque MD Primary Care Prov ider Allergies No known active allergies Medications Medication Sig Dispensed Refills Start Date End Date Status valACYclovir (VALTREX) 500 mg tabletIndications:Ge nital herpes simplex, unspecified site Take 1 Tablet (500 mg) by mouth 2 times daily. For 3 days. Take with each herpes outbreak. 6 Tablet 2 12/20/2021 Active Additional Information Patient taking differently:500 mg Oral BID,For 3 days. Take with each herpes outbreak. just as needed, Reported on 01/13/2024 cloNIDine HCL (CATAPRES) 0.2 mg tablet Take 0.2 mg by mouth at bedtime. 10/10/2023 Active escitalopram oxalate (LEXAPRO) 20 mg tablet 11/03/2023 Active hydrOXYzine HCL (ATARAX) 50 mg tablet Take 50 mg by mouth every 8 hours if needed. 11/03/2023 Active oxyCODONE-acetaminop hen (Percocet) 5-325 mg per tabletIndications:Po st-op pain take 1 tablet 1 hour before the procedure and 1 tablet after 4 hours.. 2 Tablet 03/10/2024 Active Active Problems Problem Noted Date Diagnosed Date ASCUS with positive high risk HPV cervical 11/13 Overview: 07/2008 ASCUS/HPV+ 01/2011 NIL 05/2013 NIL 06/2014 NIL 03/2018 NIL/HPV negative 10/2023 ASCUS/HPV 16 positive, HPV 18 negative. Plan: Colposcopy. Herpes simplex infection of genitourinary system 11/21/2019 Overview: Diagnosed 2015 through [place]. Generalized anxiety disorder 08/03/2018 Controlled substance agreement signed 08/03/2018 Irritability and anger 04/13/2018 Panic disorder 04/02/2018 Cannabis abuse, episodic 04/02/2018 Moderate recurrent major depression 03/16/2018 Methamphetamine use disorder, moderate, in [place] 03/16/2018 Alcohol abuse, episodic 03/16/2018 Resolved Problems Problem Noted Date Diagnosed Date Resolved Date Anxiety disorder 03/16/2018 08/03/2018 Major depressive disorder, s solitario episode, moderate 02/12/2018 03/16/2018 Amphetamine dependence 02/12/201803/16 Alcohol abuse, continuous 02/12/2018 Major depressive disorder, r ecurrent episode, moderate 03/16/2018 Encounters Date Type Department Care Team Description 03/11/2024 1:00 PM CDT Procedure Only [facility] [id number] [place] [phone] 1, Appv Specialty Proc Antonina Lema MBBS Procedure ([place]) 03/11/2024 Travel from Last 3 Months Immunizations Name Administration Dates Next Due AMB INFLUENZA, IIV4 (AGE=>6M OS) MDV (Flu Clinic Only) 08/03/2020 COVID-19 vaccine (VoodooVox NTech 30mcg/0.3mL) PF, MDV 02/13/2021,01/23/2021 DTP 04/08/1991, 7,06/14/1986,1985,02/06/1986 Hepatitis B (Peds) 07/11/2002,12/10/2001 Hepatitis B, Unspecified 07/11/2002,12/10/2001,0 06/03/2000 Influenza A (H1N1), Inactivated 08/06/2009 Influenza Virus, Unspecified 06/24/2011,06/27/20 10 Influenza, IIV3 (Age 6-35 mos) 06/24/2011,2009 Influenza, IIV3 (Age >=3 years) 09/05/20 13,07/10/2009,07/31/2008,2006,07/31/2005 Influenza, IIV4 08/16/2021, 0,08/04/2018,2016,07/03/2016,08/14/2014 MMR 06/01/1997,03/14/1987 Oral Polio Vaccine 04/08/1991, 7,04/10/1986,1985 Td (Age >=7 Years) 10/05/1997,06/01/1997 Tdap 05/23/2016,11/13/2014,09/12/2008 Tetanus Toxoid 09/12/2009,10/05/1997,06/01/1997 Tuberculin Skin Test, Unspecified 08/14/2014,12/2010,06/24/2011 Varicella Vaccine 05/17/1999,03/08/1999 Family History Medical History Relation Name Comments Anxiety disorder Brother Anxiety disorder Maternal Aunt Alcoholism Maternal Grandfather Bipolar disorder Maternal Grandfather Depression Maternal Grandfather Anxiety disorder Maternal Grandmother Anxiety disorder Mother Relation Name Status Comments Brother Maternal Aunt Maternal Grandfather Maternal Grandmother Mother Social History Tobacco Use Types Packs/Day Years Used Date Smoking Tobacco: Some Days Cigarettes 0.5 11 Smokeless Tobacco: Never Tobacco Cessation:Ready to Q uit: No; Counseling Given: No Alcohol Use Standard Drinks/Week Comments Yes 0 (1 standard drink = 0.6 oz pur e alcohol) 1-2 pints of fireball per week PHQ-2 Answer Date Recorded PHQ-2 TOTAL SCORE 2 02/03/2024 Social Connections Answer Date Recorded Frequency of Communication with Friends and Fami ly 0 11/27/2023 Financial Resource Strain Answer Date R ecorded Difficulty of Paying Living Expenses 3 11/27/2023 Difficulty of Paying Living Expenses Not on file 11/27/2023 Food Insecurity Answer Date Recorded Worried About Running Out of Food in the Last Ye ar 2 11/27/2023 Transportation Needs Answer Date Record ed Lack of Transportation (Medical) 1 11/27/2023 Housing Stability Answer Date Recorded Unable to Pay for Housing in the Last Year 1 11/27/2023 Sex and Gender Information Value Date Recorded Sex Assigned at Female 01/29/2022 1:11 PM CDT Gender Identity Female 01/29/2022 1:11 PM CDT Sexual Orientation Not on file Obstetrics History Para Term AB IAB SAB Ectopic Multiple Livin g Live Births 1 Date Outcome GA Total Labor Labor/2nd/3rd Weight Sex Type Anes PTL Bree A1 A5 Name Clin Last Filed Vital Signs Vital Sign Reading Time Taken Comments Blood Pressure 118/74 03/11/2024 1:05 PM CDT Pulse 96 03/11/2024 1:05 PM CDT Temperature 37.2 ??C (98.9 ??F) 01/29/2022 1:24 PM CD T Respiratory Rate 18 09/29/2018 2:05 PM MANAGER RECRUITMENT Oxygen Saturation 99% 01/13/2024 10:57 AM CDT Inhaled Oxygen Concentration - - Weight 86.2 kg (190 lb) 03/11/2024 1:05 PM CDT Height 170.2 cm (5' 7) 12/11/2023 1:30 PM MANAGER RECRUITMENT Body Mass Index 29.76 12/11/2023 1:30 PM MANAGER RECRUITMENT Plan of Treatment Scheduled Procedures Name Priority Associated Diagnoses Date/Ti me SURGICAL PROCEDURE (TYPE PROCEDURE DESCRIPTION BELOW) Elective ALLEN II (cervical intraepithelial neoplasia II) Health Maintenance Due Date Last Done Comments Pneumococcal series for age 6-64 (1 of 2 - PCV) 12/07/1991 COVID-19 vaccine series ( - season) 2023 02/13/2021, 01/23/2021 Influenza for age 9-49 06/05/2024 , 08/03/2020, 11/11/2019, Additional history exists Pap test for age 21-65 09/10/2024 4 (Verified in Care Everywhere or Patient Record), 01/13/2024 (Verified in Care Everywhere or Patient Record), 11/04/2023, Additional history exists BMI (ht and wt on same day) for age 18+ 12/10/2024 12/11/2023, 08/16/2021, 11/11/2019, Additional history exists Depression screening for age 12+ 02/02/2025 02/03/2024, 02/03/2024, 08/20/2021, Additional history exists Tetanus booster 05/23/2026 05/23/2016, 06/2015, 09/12/2008, Additional history exists Tdap Completed 05/23/2016, 06/2015, 09/12/2008 HIV for age 15-65 Completed 11/04/2023 Hepatitis C screening for ag e 18-79 Completed 11/04/2023 Procedures Procedure Name Priority Date/Time Associated Diagnosis Comments PATH TISSUE EXAM Routine 03/11/2024 1:28 PM CDT ALLEN II (cervical intraepithelial neoplasia II) HPV THIN PREP Routine 11/04/2023 3:00 PM MANAGER RECRUITMENT Cervical cancer screening ANTI HIV 1/2 Routine 11/04/2023 1:55 PM MANAGER RECRUITMENT Anogenital warts Exposure to syphilis ANTI HCV Routine 11/04/2023 1:55 PM MANAGER RECRUITMENT Anogenital warts Exposure to syphilis from Last 3 Months or Most Recently Relevant to Health Maintenance Results * PATH TISSUE EXAM (03/11/2024 1:28 PM CDT) Case Report Pathology Report ?Case: [id number] ? Authorizing Provider: ??Antonina Lema MBBS ? Collected: ? 03/11/2024 1328 ? Ordering Location: ? [facility] Received: ?03/11/2024 1418 ? Clinic ? Pathologist: ? Trini Thomson MD ? Specimens: ?? A) - Cervix, ant lip ? B) - Cervix, post lip ? C) - Endocervix ? 03/16/2024 4:09 PM CDT [facility] ENTRAL LABORATORY Final Diagnosis A) CERVIX, ANTERIOR LIP, LEEP CONIZATION: 1. Low grade squamous intraepithelial lesion (ALLEN 1) ?? a. Sampling: Ectocervix and endocervix ?? b. Transformation zone: Visualized in some quadrants ?? c. Margin status: ?i. ??Ectocervical margin: Indeterminate for ALLEN-1 at 12-3 o'clock, see comment ?ii. Endocervical margin: Negative 2. Negative for glandular neoplasia, high grade intraepithelial lesion, and invasive carcinoma B) CERVIX, POSTERIOR LIP, LEEP CONIZATION: 1. Low grade squamous intraepithelial lesion (ALLEN 1) ? a. Sampling: Ectocervix and endocervix ?? b. Transformation zone: Visualized in all quadrants ?? c. Margin status: ?i. ??Ectocervical margin: Negative ?ii. Endocervical margin: Negative 2. Negative for glandular neoplasia, high grade intraepithelial lesion, and invasive carcinoma C) CERVIX, TOP HAT, LEEP CONIZATION: 1. Benign cervical mucosa ?? a. Sampling: Endocervix ?? b. Transformation zone: Not visualized in any quadrant 2. Negative for glandular neoplasia, squamous intraepithelial lesion, and invasive malignancy 03/16/2024 4:09 PM CDT [facility]-C ENTRAL LABORATORY Comment A) A portion of the squamous epithelium is lost at the 12-3 o'clock margin (deeper levels lack intact epithelium). ALLEN-1 approaches the margin, however, lack of intact epithelium prevents a definitive assessment. 03/16/2024 4:09 PM CDT [facility] ENTRAL LABORATORY Clinical Information History of ALLEN-2-3 on cervical biopsy 03/16/2024 4:09 PM CDT [facility] ENTRAL LABOR[facility] Gross Description A) Received in formalin, labeled with the patient's name and A, is a 2 x 1.4 x 0.5 cm crescent-shaped mason-pink rubbery partially mucosal covered portion of cervical cone biopsy consistent with anterior aspect from 06-16-3:00. ??The greater curvature appears to represent ectocervical margin and is inked green. ??The lesser curvature appears to represent endocervical margin and is inked red. ??Sectioning shows mason-pink soft rubbery cut surfaces without discrete lesion or mass. There is an additional masno-pink rubbery partially mucosal covered tissue found in the specimen container measuring 1.6 x 0.7 x 0.3 cm. ??1 edge of the mucosa is inked green and the opposite edge is inked red and the tissue is trisected. ??No discrete lesion or mass is identified on cut section. Specimen is entirely submitted in 3 cassettes as follows: 1. ??Anterior aspect cervix 9-12:00 quadrant 2. ??Anterior aspect cervix 12-3:00 quadrant 3. ??Additional portion of cervix B) Received in formalin, labeled with the patient's name and B, is a 2.2 x 1.8 x 0.5 cm crescent-shaped mason-pink rubbery partially mucosal covered portion of cervical cone biopsy consistent with posterior aspect from 3--:00. The greater curvature appears to represent ectocervical margin and is inked green. ??The lesser curvature appears to represent endocervical margin and is inked red. ??Sectioning shows mason-pink soft rubbery cut surfaces without discrete lesion or mass. Specimen is entirely submitted in 2 cassettes as follows: 1. ??Posterior aspect cervix 3-6:00 quadrant 2. ??Posterior aspect cervix 6-9:00 quadrant C) Received in formalin, labeled with the patient's name and C, are 3, cm mason-pink rubbery nonoriented tissues consistent with cervix composed of stroma. ??These tissues measure 1 x 0.9 x 0.3 cm, 1.3 x 1 x 0.3 cm and 0.6 x 0.4 x 0.2 cm. ??No discrete ectocervical or endocervical mucosa identified. ??One broad surface is inked red and the opposite broad surface is inked green for each of the tissues and they are serially sectioned perpendicular to these 2 inks. ??Sectioning shows mason-pink soft rubbery cut surface lesion or mass. Specimen is entirely submitted in 3 cassettes 1 tissue fragment per cassette. Tissue is placed in formalin at 13: 33 on 03/11/2024. AMMON 03/14/2024 03/16/2024 4:09 PM [facility] Microscopic Description The final diagnosis is based on microscopic examination of appropriate sections of all specimens. P16 immunostains on select deeper levels were used in parts a and B to evaluate for residual high-grade intraepithelial neoplasia. 03/16/2024 4:09 PM [facility] ENTRIL LABORATORY Additional Information Interpreted at [facility], Central Laboratory - [address] [facility] [address] [address] 03/16/2024 4:09 PM [facility] Other SPECIMEN FROM UTERINE CERVIX / Unknown Non-Blood / Unknown 03/11/2024 1:28 PM CDT 03/11/2024 2:18 PM CDT Specimen (specimen) SPECIMEN FROM UTERINE CERVIX / Unknown 03/11/2024 1:30 PM CDT 03/11/2024 2:18 PM CDT Specimen (specimen) SWAB OF ENDOCERVIX / Unknown 03/11/2024 1:33 PM CDT 03/11/2024 2:18 PM CDT Antonina HILARIO PATHOLOGY/CYTOLOGY Performing Organization Address City/[facility]/ZIP Co de Phone Number [facility] [address] [place] [address], [place] * (ABNORMAL) HPV HIGH RISK (11/04/2023 3:00 PM MANAGER RECRUITMENT) TYPE 16 Positive(A) Negative 11/09/2023 3:17 PM MANAGER RECRUITMENT [facility] TRAL LABORATORY TYPE 18 Negative Negative 11/09/2023 3:17 PM MANAGER RECRUITMENT [facility] TRAL LABORATORY OTHER HIGH RISK TYPES Negative Negative 11/09/2023 3:17 PM MANAGER RECRUITMENT [facility] TRAL LABORATORY Other (Cervical/Vagina l) Non-Blood / Unknown 11/04/2023 3:00 PM MANAGER RECRUITMENT 11/05/2023 1:54 PM MANAGER RECRUITMENT Narrative [facility] - 11/09/2023 3:17 PM MANAGER RECRUITMENT Specimen is positive for HPV type 16 DNA. ??HPV types 18, 31, 33, 35, 39, 45, 51, 52, 56, 58, 59, 66 and 68 DNA were undetectable or below the pre-set threshold Methodology: Petra Patrice 4800 HPV Test Eli Roque MD MICROBIOLO GY Performing Organization Address City/[facility]/ZIP Co de Phone Number [facility] [address] [place] [address], [place] * ANTI HCV (11/04/2023 1:55 PM MANAGER RECRUITMENT) HEPATITIS C ANTIBODY Non-Reacti ve Non-React ismael 11/05/2023 8:13 PM MANAGER RECRUITMENT [facility] TRAL LAB[facility] Comment:Please note, per www .CDC.gov: If a patient is known to be at high risk of HCV infection, or is symptomatic, and the physician's suspicion of HCV infection is high, HCV RNA testing is often employed and is of diagnostic value, even after an initial negative anti-HCV test result. Blood BLOOD SPECIMEN / Unknown Butterfly / Unknown 11/04/2023 1:55 PM MANAGER RECRUITMENT 11/04/2023 3:56 PM MANAGER RECRUITMENT Eli Roque MD SEND OUTS [facility] [address] [place] [address], * ANTI HIV 1/2 (11/04/2023 1:55 PM MANAGER RECRUITMENT) HIV-1/HIV-2 SCREEN Non-Reacti ve Non-Reacti ve 11/05/2023 6:17 PM MANAGER RECRUITMENT [facility] Comment:HIV-1 p24 and HIV-1/ HIV-2 Ab Not Detected. Blood BLOOD SPECIMEN / Unknown Butterfly / Unknown 11/04/2023 1:55 PM MANAGER RECRUITMENT 11/04/2023 3:56 PM MANAGER RECRUITMENT Eli Roque MD SEND OUTS [facility] [employer]CEN[facility]AL LAB[facility] [address] [place] [address], from Last 3 Months or Most Recently Relevant to Health Maintenance Care Teams Brick Layer Relationship Specialty Start Date End Date Eli Roque MD [address] [place] [address] PCP - General Family Practice 12/11/23 Hortencia Brasher MD [address] [place] [address] Psychiatry Psychiatry 04/01/18
--- OUTSIDE RECORDS SUMMARY | 2024-05-31 13:48 | XMS_ITS | Encounter Summary ---
Author Organization [place] Address [address] [facility] [place] [address] Care Team Providers Care Ribbon Hand Name Role Phone Esha Vicente MD Primary Care Provider [phone] None Primary Care Provider UnavailEsha Watkins MD Primary Care Provider [phone] None Primary Care Provider UnavailEsha Watkins MD Primary Care Provider [phone] Esha Vicente MD Unavailable Esha Vicente MD Unavailable Encounter Details Date Type Department Care Team (Late st Contact Info) Description 10/08/2006 [facility] [place] [address] [place], [place] [id number] Antepartum Outpatient Record Social History Tobacco Use [...] on filedocumented in this encounter Care Teams Ribbon Hand Relationship Specialty Start Date End Date Esha Vicente MD PCP - General 04/14/06 05/22/16 None PCP - General 05/23/16 09/17/16 Esha Vicente MD PCP - General Family Practice 09/18/16 12/28/16 None PCP - General 12/29/16 02/09/17 Esha Vicente MD PCP - General Family Practice 02/10/17 [place] [address] [place] [address] PCP - Assigned PCP 06/22/11 12/07/18 [place] [address] [place] [address] Assigned PCP 07/08/12 02/08/22 Andres Gibbons MA, [address] [address] Therapist Licensed Mental Health 10/05/23 documented as of this encounter
--- OUTSIDE RECORDS SUMMARY | 2024-05-31 13:48 | XMS_ITS | Referral Summary ---
Author Organization [place] Address [address] [facility] [place] [address] Care Team Providers Care Aircraft Armament Mechanic Name Role Phone Esha Vicente MD Primary Care Provider Allergies No known active allergies Medications Medication [...] Vaccine (Adacel) 05/23/2016,11/13/2014,06/2008 Tetanus 09/12/2009,10/05/1997,06/01/1997 Varicella 05/17/1999,03/08/1999 Social History Tobacco Use Types Packs/Day Years [...] Comments Blood Pressure 114/81 10/06/2023 12:16 AM MEDICAL CASE MANAGER Pulse 95 10/06/2023 12:16 AM MEDICAL CASE MANAGER Temperature 35.9 ??C (96.7 ??F) 10/05/2023 8:19 PM CS T Respiratory Rate 20 10/05/2023 8:19 PM MEDICAL CASE MANAGER Oxygen Saturation 97% 10/06/2023 12:16 AM MEDICAL CASE MANAGER Inhaled Oxygen Concentration - - Weight 78.1 kg (172 lb 4 oz) 02/07/2019 2:01 PM CDT Height 172.7 cm (5' 8) 02/07/2019 2:01 PM CDT Body Mass Index 26.19 02/07/2019 2:01 PM CDT Plan of Treatment Not on file Procedures Procedure Name Priority Date/Time Associated Diagnosis Comments BASIC METABOLIC PANEL STAT 10/05/2023 10:40 PM MEDICAL CASE MANAGER HIV ANTIGEN ANTIBODY COMBO Routine 02/07/2019 2:53 [...] * Basic metabolic panel (10/05/2023 10:40 PM MEDICAL CASE MANAGER) Sodium 138 135 - 145 mmol/L 10/05/2023 11:10 PM MEDICAL CASE MANAGER [facility] Comment:Reference intervals for this test were updated on 06/30/2023 to more accurately reflect our healthy population. There may be differences in the flagging of prior results with similar values performed with this method. Interpretation of those prior results can be made in the context of the updated reference intervals. Potassium 3.8 3.4 - 5.3 mmol/L 10/05/2023 11:10 PM MEDICAL CASE MANAGER [facility] Chloride 100 98 - 107 mmol/L 10/05/2023 11:10 PM MEDICAL CASE MANAGER [facility] Carbon Dioxide (CO2) 24 22 - 29 mmol/L 10/05/2023 11:10 PM MEDICAL CASE MANAGER [facility] Anion Gap 14 7 - 15 mmol/L 10/05/2023 11:10 PM MEDICAL CASE MANAGER [facility] Urea Nitrogen 11.1 6.0 - 20.0 mg/dL 10/05/2023 11:10 PM MEDICAL CASE MANAGER [facility] Creatinine 0.70 0.51 - 0.95 mg/dL 10/05/2023 11:10 PM MEDICAL CASE MANAGER [facility] GFR Estimate >90 >60 mL/min/1. 73m2 10/05/2023 11:10 PM MEDICAL CASE MANAGER [facility] Calcium 9.1 8.6 - 10.0 mg/dL 10/05/2023 11:10 PM MEDICAL CASE MANAGER [facility] Glucose 92 70 - 99 mg/dL 10/05/2023 11:10 PM MEDICAL CASE MANAGER [facility] Blood BLOOD SPECIMEN / Unknown Venipuncture / Unknown 10/05/2023 10:40 PM MEDICAL CASE MANAGER 10/05/2023 10:44 PM MEDICAL CASE MANAGER Lita Sher MD LAB - BLOOD ORDERABL ES [facility] [address] [place], [place] [id number] [place] [address] * HIV Antigen Antibody Combo (02/07/2019 2:53 PM CDT) HIV Antigen Antibody Combo Nonreactive NR^Nonrea ctive 02/08/2019 11:40 AM CDT [facility] Comment:HIV-1 p24 Ag & HIV-1 /HIV-2 Ab Not Detected Blood specimen (specimen) 02/07/2019 2:53 PM CDT 02/07/2019 2:54 PM CDT Esha Vicente MD LAB - BLOOD ORDERABL ES [facility] [address] [place] [address] * HPV High Risk Types DNA Cervical (03/16/2018 11:15 AM CDT) HPV Source [facility] 03/16/2018 11:06 AM CDT [facility] HPV 16 DNA Negative NEG^Nega tive 03/22/2018 12:40 PM CDT [facility] HPV 18 DNA Negative NEG^Nega tive 03/22/2018 12:40 PM CDT [facility] Other HR HPV Negative NEG^Nega tive 03/22/2018 12:40 PM CDT [facility] Final Diagnosis This patient's sample is negative for HPV DNA. 03/22/2018 12:40 PM CDT [facility] Comment: This test was developed and its performance characteristics determined by the [facility], Molecular Diagnostics Laboratory. It has not been [...] Description Cervical Cells 03/19/2018 9:19 AM CDT [facility] Comment:[id number] Cervical Cells 03/16/2018 11 :15 AM CDT 03/16/2018 11:41 AM CDT Esha Vicente MD LAB - BLOOD ORDERABL ES [facility] [address] [id number] * Pap imaged thin layer screen with HPV - recommended age 30 - 65 (03/16/2018 11:06 AM CDT) PAP JON Shannon Report Patient Name: SCARLET ENGLISH MR#: [id number] Specimen #: [id number] Collected: 03/16/2018 Received: 03/17/2018 Reported: 03/18/2018 10:21 [...] STERLING Gage (ASCP) Processed and screened at [facility], [facility] CLINICAL HISTORY: LMP: 02/27/2018 Previous normal pap Date of Last Pap: 06/19/2014, Papanicolaou Test Limitations: ??Cervical cytology is a screening test with limited sensitivity; regular screening is critical for cancer prevention; Pap tests are primarily effective for the diagnosis/preventi on of squamous cell carcinoma, not adenocarcinomas or other cancers. TESTING LAB LOCATION: [address] [phone] COLLECTION SITE: Client: ??[facility] Reg'l ??[facility] Location: [facility] Cytologic material (specimen) 03/16/2018 11:06 AM CDT 03/17/2018 9:30 AM CDT Esha Vicente MD LAB - [facility] L SPECIMEN Performing Organization Address City/[facility] [address]/ZIP Co de Phone Number [facility] * HCV ANTIBODY (07/31/2008 3:11 PM CDT) Hepatitis C Antibody Negative NEG [facility] 07/31/2008 3:11 PM CDT 07/31/2008 3:12 PM CDT Esha Vicente MD LABORATORY [facility] from Last 3 Months or Most Recently Relevant to Health Maintenance Care Teams Aircraft Armament Mechanic Relationship Specialty Start Date End Date Esha Vicente MD PCP - General Family Practice 02/10/17 Andres Gibbons MA, [facility] Secure [address] [address] Therapist Licensed Mental Health 10/05/23
--- OUTSIDE RECORDS SUMMARY | 2024-05-31 13:48 | XMS_ITS | Encounter Summary ---
Author Organization [place] Address [address] [facility] [place] [address] Care Team Providers Care Broker In Charge Name Role Phone Esha Vicente MD Primary Care Provider Esha Vicente MD Unavailable [phone] Esha Vicente MD Unavailable [phone] Encounter Details Date Type Department Care Team (Late st Contact Info) Description 04/06/2018 [facility] M [address] [phone] [place] [address] [place] [address] Social History Tobacco Use Types Packs/Day Years [...] Assessment Noted Time PHQ-9 Depression Total Score: 17 018 7:15 AM CDT documented as of this encounter Care Teams Broker In Charge Relationship Specialty Start Date End Date Esha Vicente MD PCP - General Family Practice 02/10/17 [place] [address] [place] [address] PCP - Assigned PCP 06/22/11 12/07/18 [place] [address] [facility] [place] [place] [address] Assigned PCP 07/08/12 02/08/22 Andres Gibbons MA, [facility] [employer] [address] [address] Therapist Licensed Mental Health 10/05/23 documented as of this encounter
--- OUTSIDE RECORDS SUMMARY | 2024-05-31 13:48 | XMS_ITS | Encounter Summary ---
Author Organization [place] Address [address] [facility] [place] [address] Care Team Providers Care Semiconductor Wafers Marker Name Role Phone Esha Vicente MD Primary Care Provider [phone] None Primary Care Provider Unavailabl e Esha Vicente MD Primary Care Provider [phone] None Primary Care Provider Unavailabl e Esha Vicente MD Primary Care Provider + [phone] Esha Vicente MD Unavailable Esha Vicente MD Unavailable [phone] Encounter Details Date Type Department Care Team (Late st Contact Info) Description 06/28/2009 [facility] Abstract, Provider Social History Tobacco Use Types Packs/Day Years Used Date Smoking Tobacco: Every Day Cigarettes Alcohol Use Standard Drinks/Week Comments No 0 (1 standard drink = 0.6 oz pur e alcohol) Sex and Gender Information Value Date Recorded Sex Assigned at Not on file Gender Identity Not on file Sexual Orientation Not on file documented as of this encounter Plan of Treatment Not on file documented as of this encounter Visit Diagnoses Not on filedocumented in this encounter Care Teams Semiconductor Wafers Marker Relationship Specialty Start Date End Date Esha Vicente MD PCP - General 04/14/06 05/22/16 None PCP - General 05/23/16 09/17/16 Esha Vicente MD PCP - General Family Practice 09/18/16 12/28/16 None PCP - General 12/29/16 02/09/17 Esha Vicente MD PCP - General Family Practice 02/10/17 [place] [address] [facility] [place] [address] PCP - Assigned PCP 06/22/11 12/07/18 [place] [address] [facility] [place] [address] Assigned PCP 07/08/12 02/08/22 Andres Gibbons MA, [facility] [employer] [address] [address] Therapist Licensed Mental Health 10/05/23 documented as of this encounter
== END 2024-05-30 10:53 | disposition home or self-care (01) ==
LOC: NFLDREF 05-31 13:45
PROVIDERS: PCP Family Medicine; Visit Provider Physician Assistant
DX: N39.0 Urinary tract infection, site not specified (principal); M54.9 Dorsalgia, unspecified; N12 Tubulo-interstitial nephritis, not specified as acute or chronic
CPT/HCPCS: 87086; 87186

== ENCOUNTER 2024-07-29 17:42 | Emergency (ER) | payer BC, SELFPAY ==
[2024-07-29 17:59] VITALS: BP 131/81; PULSE 107; RESP 16; TEMP 36.6; O2SAT 100; BMI 29.0
[2024-07-29 18:16] LABS: Appearance Urine Cloudy (Clear); Bilirubin Urine Negative (Negative); Blood Urine 3+ (Negative); Color Urine Yellow (Yellow); Glucose Urine Negative (Negative); Ketones Urine Negative (Negative); Leukocyte Esterase Urine 1+ (Negative); Nitrite Urine Positive (Negative); Protein Urine 1+ (Negative); Specific Gravity Urine >= 1.030 (1.000-1.030); Urobilinogen Urine 0.2 (0.2-1.0); pH Urine 5.5 (5.0-8.5)
[2024-07-29 18:45] LABS: Bacteria Urine Many; RBC Urine 25-50 (0-2); Squamous Epithelial Cell Urine Few (None-Few); WBC Clumps Urine Moderate; WBC Urine >100 (0-5)
--- NOTE | 2024-07-29 19:07 | ED.GENADULT ---
HPI - General Adult General Time Seen by Provider: 19:08 Date Seen: 07/29/24 Chief complaint: Urogenital Problems, Female Stated complaint: Suspected bladder infection Time Seen by Provider: 07/29/24 19:06 Source: patient and RN notes reviewed Mode of arrival: ambulatory Limitations: no limitations History of Present Illness HPI narrative: This 38-year-old female is coming in with primary concern of a right 3rd ingrown toenail. It has bothered her for years but this current episode probably couple months. She did try a digging the nail out, thinks she may be made it worse. There is maybe some discharge, is getting cold out in she is not tolerating her toe being put in a shoe. There is no fevers or chills with this. It hurts more on the lateral aspect. I have reviewed with patient that we do not do toenail removals out of the ER, she expressed some dissatisfaction with this but reviewed with her that we really just do not do this procedure, I do not have the equipment here. She can try urgent cares, would recommend calling them to see if they do do toenail removals. I would recommend talking to her primary care provider and getting Podiatry referral. She also did bring up that she wonders if she maybe has a bladder infection again. She has been having some urgency, some dysuria, symptoms started a week ago. No fevers or chills. She does have a history of ESBL UTI in May. She states she never did follow-up. She did take Macrobid, was found to be sensitive to Macrobid. Symptoms did resolve in between. Related Data Home Medications ?Medication ?Instructions ?Recorded ?Confirmed clonidine HCl 0.2 mg tablet 0.2 mg PO QPM 08/17/23 07/29/24 Previous Rx's ?Medication ?Instructions ?Recorded cephalexin 500 mg tablet 500 mg PO TID #15 tabs 07/29/24 nitrofurantoin 100 mg PO BID #14 caps 07/29/24 monohydrate/macrocrystals 100 mg capsule (Macrobid) Allergies Allergy/AdvReac Type Severity Reaction Status Date / Time No Known Drug Allergies Allergy Verified 05/30/24 10:49 Review of Systems Status of ROS: Reports: 6 or more systems reviewed and unremarkable except as noted in History and below [facility] Medical History Depression ?F32.A - Depression, unspecified (ICD-10) Social History Smoking Status: Never smoker How often do you have a drink containing alcohol: never AUDIT-C Alcohol total score: 0 Non-prescribed substance use: denies use Little interest or pleasure in doing things: several days Feeling down, depressed, or hopeless: several days Exam Const: Vital Signs, click to edit/add: Vital Signs - 24 hr 07/29/24 17:59 Temperature 97.8 F Pulse Rate [Pulse Oximeter] 107 H Respiratory Rate 16 Blood Pressure [Ri ght Upper Arm] 131/81 Pulse Oximetry 100 Oxygen Delivery Me thod Room Air Patient is seen in the triage room due to the volume and acuity. She is ambulatory in the ED of her own accord. She is alert, interactive, no apparent distress. Her right 3rd toenail has some thickening along the lateral nail fold, is tender but there is no drainage. She has her nail cut down quite severely into the nail fold, can see a little erythema along the nail bed but no active paronychia noted. This looks more chronic in nature. Did review her urinalysis, is concerning for UTI. Documenting provider has reviewed patient's vital signs: yes Course Vital Signs Vital signs: Initial Vital Signs Temperature 97.8 F 07/29/24 17:59 Temperature Source Temporal Artery Scan 07/29/24 17:59 Pulse Rate 107 H 07/29/24 17:59 Respiratory Rate 16 07/29/24 17:59 Blood Pressure 131/81 07/29/24 17:59 Blood Pressure Mean 97 07/29/24 17:59 Blood Pressure Position Sitting 07/29/24 17:59 Pulse Oximetry 100 07/29/24 17:59 Oxygen Delivery Method Room Air 07/29/24 17:59 Vital Signs Temperature 97.8 F 07/29/24 17:59 Pulse Rate 107 H 07/29/24 17:59 Respiratory Rate 16 07/29/24 17:59 Blood Pressure 131/81 07/29/24 17:59 Pulse Oximetry 100 07/29/24 17:59 Oxygen Delivery Method Room Air 07/29/24 17:59 Temperature 97.8 F 07/29/24 17:59 Pulse Rate 107 H 07/29/24 17:59 Respiratory Rate 16 07/29/24 17:59 Blood Pressure 131/81 07/29/24 17:59 Pulse Oximetry 100 07/29/24 17:59 Oxygen Delivery Method Room Air 07/29/24 17:59 Medical Decision Making Lab Data Lab results reviewed: Yes I reviewed the patient's lab results Labs: Lab Results 07/29/24 Range/Units 18:05 Urine Color Yellow (Yellow) Urine Appearance Cloudy A (Clear) Urine pH 5.5 (5.0-8.5) Ur Specific [place] >= 1.030 (1.000-1.030) Urine Protein 1+ A (Negative) Urine Glucose (UA) Negative (Negative) Urine Ketones Negative (Negative) Urine Blood 3+ A (Negative) Urine Nitrite Positive A (Negative) Urine Bilirubin Negative (Negative) Urine Urobilinogen 0.2 (0.2-1.0) Ur Leukocyte Esterase 1+ A (Negative) Urine RBC 25-50 A (0-2) Urine WBC >100 A (0-5) Urine WBC Clumps Moderate A (None) Ur Squamous Epith Cells Few (None-Few) Urine Bacteria Many A (None) Discharge Plan Discharge Clinical Impression: Ingrowing toenail of right foot UTI (urinary tract infection) Qualifiers: Urinary tract infection type: acute cystitis Hematuria presence: without hematuria Qualified Code(s): N30.00 - Acute cystitis without hematuria Instructions: Urinary Tract Infection in Women (ED), Ingrown Nail (ED) Additional Instructions: Start the Macrobid for the urinary tract infection. We will let you know if the urine culture is growing anything that requires a change. If you are becoming more ill such as nausea vomiting, abdominal pain, develops fevers, please seek re-evaluation. For the toenail, have sent prescription for Keflex in, do think you should probably wait until you are done with the Macrobid as multiple antibiotics can increase the risk of Clostridium difficile over growth infection in the bowels giving you diarrhea/abdominal pain, possibly making you quite ill. I would ultimately recommend talking to your primary care provider in getting a Podiatry referral for this toe for definitive treatment. You can check with urgent cares and see if anybody does do toenail removals or partial toenail removals, we do not do them out of the ER. You can do warm soaks, try to not cut the toenail down. Activity Level: Activity as Tolerated Prescriptions: New nitrofurantoin monohyd/m-cryst [Macrobid] 100 mg capsule 100 mg PO BID Qty: 14 0RF Rx Instructions: must administer with a meal/food cephalexin 500 mg tablet 500 mg PO TID Qty: 15 0RF No Action clonidine HCl 0.2 mg tablet 0.2 mg PO QPM Follow Up/Referrals: Jose Alford MD [Primary Care Provider] - Stand Alone Forms: MyHealth Info Instructions
--- OUTSIDE RECORDS SUMMARY | 2024-07-29 19:18 | XMS_ITS | Encounter Summary ---
Author Organization [place] Address [address] [facility] [place] [address] Care Team Providers Care Guide Winder Name Role Phone Esha Vicente MD Primary Care Provider [phone] Esha Vicente MD Unavailable [phone] Esha Vicente MD Unavailable [phone] Encounter Details Date Type Department Care Team (Late st Contact Info) Description 01/04/2018 [facility] Medical Advice M [address] [phone] Caroline Early RN Social History Tobacco Use Types Packs/Day Years Used Date Smoking Tobacco: Every Day Cigarettes Smokeless Tobacco: Never Alcohol Use Standard Drinks/Week Comments Yes 0 (1 standard drink = 0.6 oz pure alcohol) 1-2 drinks weekly- quit with Comments No Sex and Gender Information Value Date Recorded Sex Assigned at Not on file 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 Gender Identity Not on file Sexual Orientation Not on file documented as of this encounter Plan of Treatment Not on file documented as of this encounter Visit Diagnoses Not on filedocumented in this encounter Additional Health Concerns Assessment Noted Time PHQ-9 Depression Total Score: 4 01/06/20 18 7:48 AM CDT documented as of this encounter Care Teams Guide Winder Relationship Specialty Start Date End Date Esha Vicente MD PCP - General Family Practice 02/10/17 [place] [address] [facility] [place] [address] PCP - Assigned PCP 06/22/11 12/07/18 [place] [address] [facility] [place] [address] Assigned PCP 07/08/12 02/08/22 Andres Gibbons MA, [facility] [employer] [address] [address] Therapist Licensed Mental Health 10/05/23 documented as of this encounter
--- OUTSIDE RECORDS SUMMARY | 2024-07-29 19:18 | XMS_ITS | Encounter Summary ---
Author Organization [place] Address [address] [facility] 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 Ange Chela, Station Parking Lot Supervisor [employer] GARD[employer] WORKERS * Telephone Encounter - Caroline Early RN - 10/14/2017 1:03 PM CSTMessage from MyChart: Original authorizing provider: MD Scarlet Cam would like a refill of the following medications: sertraline (ZOLOFT) 50 MG tablet [Esha Vicente MD] [id number] [employer] [facility] Comment: Requesting a refill on these two medications. Not sure if my first request was successful or not. Ineed to change the pharmacy to the [facility] - pharmacy # [id number] ([address] [facility]) Thank you Medication renewals requested in this message routed to other providers: LORazepam (ATIVAN) 0.5 MG tablet [Yuridia Little, GOLF BALL INSPECTOR [facility]] [employer] GARD[employer] WORKERS documented in this encounter Plan of Treatment Not on file documented as of this encounter Visit Diagnoses Diagnosis JIMMY (generalized anxiety disorder) Generalized anxiety disorder documented in this encounter Additional Health Concerns Assessment Noted Time PHQ-9 Depression Total Score: 14 017 7:19 AM CDT documented as of this encounter Care Teams Senior Electronics Engineer Relationship Specialty Start Date End Date Esha Vicente MD PCP - General Family Practice 02/10/17 [place] [address] [facility] [place] [address] PCP - Assigned PCP 06/22/11 12/07/18 [place] [address] [facility] [place] [address] Assigned PCP 07/08/12 02/08/22 Andres Gibbons MA, [facility] Secure [facility] [address] [place] [address]. [address] Therapist Licensed Mental Health 10/05/23 documented as of this encounter
--- OUTSIDE RECORDS SUMMARY | 2024-07-29 19:18 | XMS_ITS | Encounter Summary ---
Author Organization [place] Address [address] [facility] [place] [address] Care Team Providers Care Page Technician Name Role Phone Esha Vicente MD Primary Care Provider [phone] Primary Care Provider UnavailEsha Watkins MD Primary Care Provider [phone] None Primary Care Provider UnavailEsha Watkins MD Primary Care Provider [phone] Esha Vicente MD Unavailable [phone] Esha Vicente MD Unavailable [phone] Encounter Details Date Type Department Care Team (Late st Contact Info) Description 08/22/2006 [facility] Ekaterina Pantoja MD [facility] [address] [place]) [place] [address] Antepartum Outpatient Record Social History Tobacco Use Types Packs/Day Years Used Date Smoking Tobacco: Every Day Cigarettes Other Smokeless Tobacco: Never Comments:Patient using E-cig Alcohol Use Standard Drinks/Week Comments Yes 0 (1 standard drink = 0.6 oz pur e alcohol) 1-2 liter/week of whiskey Comments No Sex and Gender Information Value Date Recorded Sex Assigned at Not on file 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 Gender Identity Not on file Sexual Orientation Not on file documented as of this encounter Plan of Treatment Not on file documented as of this encounter Visit Diagnoses Not on filedocumented in this encounter Care Teams Page Technician Relationship Specialty Start Date End Date Esha Vicente MD PCP - General 04/14/06 05/22/16 None PCP - General 05/23/16 09/17/16 Esha Vicente MD PCP - General Family Practice 09/18/16 12/28/16 None PCP - General 12/29/16 02/09/17 Esha Vicente MD PCP - General Family Practice 02/10/17 [place] [address] [place] [address] PCP - Assigned PCP 06/22/11 12/07/18 [place] [address] [place] [address] Assigned PCP 07/08/12 02/08/22 Andres Gibbons MA, [facility] [employer] [facility] [address] [place] [address]. [address] Therapist Licensed Mental Health 10/05/23 documented as of this encounter
--- OUTSIDE RECORDS SUMMARY | 2024-07-29 19:18 | XMS_ITS | Encounter Summary ---
Author Organization [place] Address [address] [facility] [address] Care Team Providers Care Target Aircraft Technician Name Role Phone Esha Vicente MD Primary Care Provider [phone] Primary Care Provider UnavailEsha Watkins MD Primary Care Provider [phone] None Primary Care Provider UnavailEsha Watkins MD Primary Care Provider [phone] Esha Vicente MD Unavailable Esha Vicente MD Unavailable Encounter Details Date Type Department Care Team (Late st Contact Info) Description 10/08/2006 [facility] [place] [address] [place] [address] Antepartum Outpatient Record Social History Tobacco Use [...] on file 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 Gender Identity Not on file Sexual Orientation Not on file documented as of this encounter Plan of Treatment Not on file documented as of this encounter Visit Diagnoses Not on filedocumented in this encounter Care Teams Target Aircraft Technician Relationship Specialty Start Date End Date Esha Vicente MD PCP - General 04/14/06 05/22/16 None PCP - General 05/23/16 09/17/16 Esha Vicente MD PCP - General Family Practice 09/18/16 12/28/16 None PCP - General 12/29/16 02/09/17 Esha Vicente MD PCP - General Family Practice 02/10/17 [place] [address] [place] [address] PCP - Assigned PCP 06/22/11 12/07/18 [place] [address] [place] [address] Assigned PCP 07/08/12 02/08/22 Andres Gibbons MA, [facility] [employer] [address] [address] Therapist Licensed Mental Health 10/05/23 documented as of this encounter
--- OUTSIDE RECORDS SUMMARY | 2024-07-29 19:18 | XMS_ITS | Encounter Summary ---
Author Organization [place] Address [address] [facility] 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 Gender Identity Not on file Sexual Orientation Not on file documented as of this encounter Plan of Treatment Not on file documented as of this encounter Visit Diagnoses Not on filedocumented in this encounter Care Teams Needlemaker Relationship Specialty Start Date End Date Esha Vicente MD PCP - General 04/14/06 05/22/16 None PCP - General 05/23/16 09/17/16 Esha Vicente MD PCP - [facility] Family Practice 09/18/16 12/28/16 None PCP - General 12/29/16 02/09/17 Esha Vicente MD PCP - [facility] Practice 02/10/17 [place] [address] [place] [address] PCP - Assigned PCP 06/22/11 12/07/18 [place] [address] [place] [address] Assigned PCP 07/08/12 02/08/22 Andres Gibbons MA, [address] [address] Therapist Licensed Mental Health 10/05/23 documented as of this encounter
--- OUTSIDE RECORDS SUMMARY | 2024-07-29 19:18 | XMS_ITS | Encounter Summary ---
Author Organization [place] Address [address] [facility] 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 L COREMAKER documented in this encounter Plan of Treatment Not on file documented as of this encounter Visit Diagnoses Not on filedocumented in this encounter Additional Health Concerns Assessment Noted Time PHQ-9 Depression Total Score: 21 10/23/ 018 1:03 PM SHELL COREMAKER documented as of this encounter Care Teams Creative Writing Teacher Relationship Specialty Start Date End Date Esha Vicente MD PCP - General Family Practice 02/10/17 [place] [address] [facility] [place] [place] [address] PCP - Assigned PCP 06/22/11 12/07/18 [place] [address] [facility] [place] [address] Assigned PCP 07/08/12 02/08/22 Andres Gibbons MA, [facility] [employer] [address] [address] Therapist Licensed Mental Health 10/05/23 documented as of this encounter
--- OUTSIDE RECORDS SUMMARY | 2024-07-29 19:18 | XMS_ITS | Encounter Summary ---
Author Organization [place] Address [address] [facility] [place] [address] Care Team Providers Care Training Analyst Name Role Phone Esha Vicente MD Primary Care Provider Esha Vicente MD Unavailable [phone] Esha Vicente MD Unavailable [phone] Encounter Details Date Type Department Care Team (Late st Contact Info) Description 04/06/2018 MyC Medical Advice M [address] [phone] [place] [address] [place] [address] Social History Tobacco Use Types Packs/Day Years Used Date Smoking Tobacco: Every Day Cigarettes Other Smokeless Tobacco: Never Comments:Patient using E-cig Alcohol Use Standard Drinks/Week Comments Yes 0 (1 standard drink = 0.6 oz pur e alcohol) 1-2 liter/week of whiskey Comments No Sex and Gender Information Value Date Recorded Sex Assigned at Not on file 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 Gender Identity Not on file Sexual Orientation Not on file documented as of this encounter Plan of Treatment Not on file documented as of this encounter Visit Diagnoses Not on filedocumented in this encounter Additional Health Concerns Assessment Noted Time PHQ-9 Depression Total Score: 17 018 7:15 AM CDT documented as of this encounter Care Teams Training Analyst Relationship Specialty Start Date End Date Esha Vicente MD PCP - General Family Practice 02/10/17 [place] [address] [place] [address] PCP - Assigned PCP 06/22/11 12/07/18 [place] [address] [facility] [place] [address] Assigned PCP 07/08/12 02/08/22 Andres Gibbons MA, [facility] [employer] Counsel[facility] [address] [place] [address]. [address] Therapist Licensed Mental Health 10/05/23 documented as of this encounter
--- OUTSIDE RECORDS SUMMARY | 2024-07-29 19:18 | XMS_ITS | Referral Summary ---
Author Organization [place] Address [address] [facility] [place] [address] Care Team Providers Care Lathe Puller Name Role Phone Esha Vicente MD Primary Care Provider Allergies No known active allergies Medications busPIRone (BUSPAR) 5 MG tablet Take 5 mg by mouth 2 times daily Active LamoTRIgine (LAMICTAL) 200 MG TB24 Take 200 mg by mouth daily 12/28/2018 Active desvenlafaxine (PRISTIQ) 50 MG 24 hr tablet Take 50 mg by mouth daily 12/28/2018 Active LORazepam (ATIVAN) 1 MG tablet Take 1 mg by mouth daily as needed 12/28/2018 Active norgestim-eth estrad triphasic (ORTHO TRI-CYCLEN/TRI-S PRINTEC) 0.18/0.215/0.25 MG-35 MCG tabletIndication s:Irregular menses Take 1 tablet by mouth daily 84 tablet 3 02/07/2019 Active Active Problems Problem Noted Date Diagnosed Date Severe episode of recurrent major depressive disorder, without psychotic features 01/07/2017 JIMMY (generalized anxiety disorder) 01/07/2017 HSV (herpes simplex virus) infection 03/11/2016 Overview (03/11/2016): Start at 34 weeks due to deliveries at 37 weeks. CARDIOVASCULAR SCREENING; LDL GOAL LESS THAN 160 08/04/2010 ASCUS on Pap smear 04/02/2009 Overview (04/02/2009): 07/31/08:Pap--ASCUS, neg HPV. Repeat pap 1 year. Migraine headache 07/31/2008 Overview (07/05/2012): May 02, 2010 improved. (Problem list name updated by automated process. Provider to review and confirm.) Tobacco abuse 04/04/2008 Overview (05/02/2010): May 02, 2010 addressed. Resolved Problems Problem Noted Date Diagnosed Date Resolved Date Severe episode of recurrent major depressive disorder, without psychotic features 11/04/201612/2016 Supervision of other normal , antepartum 04/23/2016 01/05/2017 GBS (group B Streptococcus c arrier), +RV culture, currently 12/17/2014 02/05/2015 Encounter for supervision of other normal 10/10/2009 05/02/2010 Overview (08/06/2015): Diagnosis updated by automated process. Provider to review and confirm. ASCUS on Pap smear 08/07/2008 05 9 Overview (05/11/2013): HPV positive- low ridk- dx pap follow up in 08/200906/28/2009:Pap--ASCUS, +High Risk HPV outside location 01/15/11:Pap--NIL 05/09/13:Pap--NIL. Consider Q3 year pap screening after 1 more consecutive normal pap result Neck pain 07/31/2008 05/02/2010 Overview (07/31/2008): July 31, 2008 probably from carrying her [...] live 04/08/1991,06/03/19 87,04/10/1986, 986 TDAP Vaccine (Adacel) 05/23/2016,11/13/2014,2008 Tetanus 09/12/2009,10/05/1997,06/01/1997 Varicella 05/17/1999,03/08/1999 Social History Tobacco [...] School Help Needed Not on file 07/12 Comments No Sex and Gender Information Value Date Recorded Sex Assigned at Not on file Legal Sex Female 4:19 AM MEDICAL AIDE Gender Identity Not on file Sexual Orientation Not on file Last Filed Vital Signs Vital Sign Reading Time Taken Comments Blood Pressure 114/81 10/06/2023 12:16 AM MEDICAL AIDE Pulse 95 10/06/2023 12:16 AM MEDICAL AIDE Temperature 35.9 ??C (96.7 ??F) 10/05/2023 8:19 PM CS T Respiratory Rate 20 10/05/2023 8:19 PM MEDICAL AIDE Oxygen Saturation 97% 10/06/2023 12:16 AM MEDICAL AIDE Inhaled Oxygen Concentration - - Weight 78.1 kg (172 lb 4 oz) 02/07/2019 2:01 PM CDT Height 172.7 cm (5' 8) 02/07/2019 2:01 PM CDT Body Mass Index 26.19 02/07/2019 2:01 PM CDT Plan of Treatment Not on file Procedures Procedure Name Priority Date/Time Associated Diagnosis Comments BASIC METABOLIC PANEL STAT 10/05/2023 10:40 PM MEDICAL AIDE HIV ANTIGEN ANTIBODY COMBO Routine 02/07/2019 2:53 [...] Basic metabolic panel (10/05/2023 10:40 PM MEDICAL AIDE) Sodium 138 135 - 145 mmol/L 10/05/2023 11:10 PM MEDICAL AIDE [facility] Comment:Reference intervals for this test were updated on 06/30/2023 to more accurately reflect our healthy population. There may be differences in the flagging of prior results with similar values performed with this method. Interpretation of those prior results can be made in the context of the updated reference intervals. Potassium 3.8 3.4 - 5.3 mmol/L 10/05/2023 11:10 PM MEDICAL AIDE [facility] Chloride 100 98 - 107 mmol/L 10/05/2023 11:10 PM MEDICAL AIDE [facility] Carbon Dioxide (CO2) 24 22 - 29 mmol/L 10/05/2023 11:10 PM MEDICAL AIDE [facility] Anion Gap 14 7 - 15 mmol/L 10/05/2023 11:10 PM MEDICAL AIDE [facility] Urea Nitrogen 11.1 6.0 - 20.0 mg/dL 10/05/2023 11:10 PM MEDICAL AIDE [facility] Creatinine 0.70 0.51 - 0.95 mg/dL 10/05/2023 11:10 PM MEDICAL AIDE [facility] GFR Estimate >90 >60 mL/min/1. 73m2 10/05/2023 11:[address] [facility] Calcium 9.1 8.6 - 10.0 mg/dL 10/05/2023 11:10 PM MEDICAL AIDE N [facility]ATORY Glucose 92 70 - 99 mg/dL 10/05/2023 11:[address] [facility] Blood BLOOD SPECIMEN / Unknown Venipuncture / Unknown 10/05/2023 10:40 PM MEDICAL AIDE 10/05/2023 10:44 PM MEDICAL AIDE us Lita Sher MD LAB - BLOOD ORDERABLES Final Res ult [facility] [address] [phone] * HIV Antigen Antibody Combo (02/07/2019 2:53 PM CDT) HIV Antigen Antibody Combo Nonreactive NR^Nonrea ctive 02/08/2019 11:40 AM CDT [facility] Comment:HIV-1 p24 Ag & HIV-1 /HIV-2 Ab Not Detected Blood specimen (specimen) 02/07/2019 2:53 PM CDT 02/07/2019 2:54 PM CDT us Esha Vicente MD LAB - BLOOD ORDERABLES Final Result [facility] [address] [place] [address] * HPV High Risk Types DNA Cervical (03/16/2018 11:15 AM CDT) HPV Source [facility] 03/16/2018 11:06 AM CDT [facility] HPV 16 DNA Negative NEG^Nega tive 03/22/2018 12:40 PM CDT [facility] HPV 18 DNA Negative NEG^Nega tive 03/22/2018 12:40 PM CDT [facility] Other HR HPV Negative NEG^Nega tive 03/22/2018 12:40 PM CDT [facility] Final Diagnosis This patient's sample is negative for HPV DNA. 03/22/2018 12:40 PM CDT [facility] Comment: This test was developed and its performance characteristics determined by the [facility]. It has not been [...] Description Cervical Cells 03/19/2018 9:19 AM CDT [facility] Comment:[id number] Cervical Cells 03/16/2018 11 :15 AM CDT 03/16/2018 11:41 AM CDT us Esha Vicente MD LAB - BLOOD ORDERABLES Final Result [address] [address] * Pap imaged thin layer screen with HPV - recommended age 30 - 65 (03/16/2018 11:06 AM CDT) PAP JON Shannon Report Patient Name: SCARLET ENGLISH MR#: [id number] Specimen #: [id number] Collected: 03/16/2018 Received: 03/17/2018 Reported: 03/18/2018 10:21 [...] STERLING Gage (ASCP) Processed and screened at [facility] CLINICAL HISTORY: LMP: 02/27/2018 Previous normal pap Date of Last Pap: 06/19/2014, Papanicolaou Test Limitations: ??Cervical cytology is a screening test with limited sensitivity; regular screening is critical for cancer prevention; Pap tests are primarily effective for the diagnosis/preventi on of squamous cell carcinoma, not adenocarcinomas or other cancers. TESTING LAB LOCATION: [address] [phone] COLLECTION SITE: Client: [facility] Location: [facility] () [facility] Cytologic material (specimen) 03/16/2018 11:06 AM CDT 03/17/2018 9:30 AM CDT us Esha Vicente MD LAB - OPTIME CLINICAL SPECIM EN Final Result Performing Organization Address [facility] Co de Phone Number COPATH * HCV ANTIBODY (07/31/2008 3:11 PM CDT) Hepatitis C Antibody Negative NEG [facility] 07/31/2008 3:11 PM CDT 07/31/2008 3:12 PM CDT us Esha Vicente MD LABORATORY Final Result Performing Organization Address City/[facility]/ZIP Co de Phone Number [address] [address] from Last 3 Months or Most Recently Relevant to Health Maintenance Care Teams Lathe Puller Relationship Specialty Start Date End Date Esha Vicente MD PCP - General Family Practice 02/10/17 Andres Gibbons MA, [facility] [address] [place] [address]. [id number] Therapist Licensed Mental Health 10/05/23
--- OUTSIDE RECORDS SUMMARY | 2024-07-29 19:18 | XMS_ITS | Encounter Summary ---
Author Organization [place] Address [address] [facility] [place] [address] Care Team Providers Care Roofing Contractor Name Role Phone Esha Vicente MD Primary Care Provider + [phone] None Primary Care Provider UnavailEsha Watkins MD Primary Care Provider + [phone] None Primary Care Provider UnavailEsha Watkins MD Primary Care Provider + [phone] Esha Vicente MD Unavailable [phone] Esha Vicente MD Unavailable [phone] Encounter Details Date Type Department Care Team (Late st Contact Info) Description 08/16/2006 [facility] ALIRIO Dian Sheppard MD NO INFO [...] on file Legal Sex Female 4:19 AM DELIVERY DRIVER/CUSTOMER SERVICE Gender Identity Not on file Sexual Orientation Not on file documented as of this encounter Plan of Treatment Not on file documented as of this encounter Visit Diagnoses Not on filedocumented in this encounter Care Teams Roofing Contractor Relationship Specialty Start Date End Date Esha Vicente MD PCP - General 04/14/06 05/22/16 None PCP - General 05/23/16 09/17/16 Esha Vicente MD PCP - [facility] Family Practice 09/18/16 12/28/16 None PCP - General 12/29/16 02/09/17 Esha Vicente MD [facility] 02/10/17 [place] [address] [place] [address] PCP - Assigned PCP 06/22/11 12/07/18 [place] [address] [place] [address] Assigned PCP 07/08/12 02/08/22 Andres Gibbons MA, [address] [address] Therapist Licensed Mental Health 10/05/23 documented as of this encounter
--- OUTSIDE RECORDS SUMMARY | 2024-07-29 19:18 | XMS_ITS | Encounter Summary ---
Author Organization [place] Address [address] [facility] [place] [address] Care Team Providers Care Stocking And Box Shop Supervisor Name Role Phone Esha Vicente MD Primary Care Provider [phone] Esha Vicente MD Unavailable [phone] Esha Vicente MD Unavailable [phone] Reason for Visit * Reason Onset Date Comments Outpatient 02/06/2018 Encounter Details Date Type Department Care Team ([facility] Contact Info) Description 02/06/2018 Telephone [facility] Behavioral Health Intake [address] [place] [phone] Generic, Behavioral Intake, Outpatient Social History Tobacco Use Types Packs/Day Years Used Date Smoking Tobacco: Every Day Cigarettes Smokeless Tobacco: Never Alcohol Use Standard Drinks/Week Comments Yes 0 (1 standard drink = 0.6 oz pur e alcohol) 1-2 liter/week of whiskey Comments No Sex and Gender Information Value Date Recorded Sex Assigned at Not on file Legal Sex Female 4:19 AM ADDICTION SPECIALIST Gender Identity Not on file Sexual Orientation Not on file documented as of this encounter Miscellaneous Notes * Telephone Encounter - Laura Heller - 02/08/2018 9:54 AM CDT Pt has active bens, in basket ref sent ref order from Dr Smith in [facility]. Order made ready to sched for NG-14 * Telephone Encounter - Hortencia Matamoros - 02/06/2018 8:51 PM CDT S: [facility] calling with a 32 yr old female [...] primary physician. Pt wants to get help. [facility] informed pt that she would have to [...] documented as of this encounter Care Teams Stocking And Box Shop Supervisor Relationship Specialty Start Date End Date Esha Vicente MD PCP - General Family Practice 02/10/17 [place] [address] [facility] [address] PCP - Assigned PCP 06/22/11 12/07/18 [place] [address] [facility] [place] [address] Assigned PCP 07/08/12 02/08/22 Andres Gibbons MA, [facility] [address] [place] [address]. [id number] Therapist Licensed Mental Health 10/05/23 documented as of this encounter
--- OUTSIDE RECORDS SUMMARY | 2024-07-29 19:18 | XMS_ITS | Clinical Summary ---
Author Organization [facility] Address [place], [place] [address] Care Team Providers Care Color Paste Mixer Name Role Phone Hortencia Brasher MD Unavail [...] with positive high risk HPV cervical 11/13 Overview (11/13/2023): 07/2008 ASCUS/HPV+ 01/2011 NIL 05/2013 NIL 06/2014 NIL 03/2018 NIL/HPV negative 10/2023 ASCUS/HPV 16 positive, HPV 18 negative. Plan: Colposcopy. Herpes simplex infection of genitourinary system 11/21/2019 Overview (11/21/2019): Diagnosed 2015 [facility]. Generalized anxiety disorder 08/03/2018 Controlled substance agreement [...] depressive disorder, r ecurrent episode, moderate 03/16/2018 Immunizations Name Administration Dates Next Due AMB INFLUENZA, IIV4 (AGE=>6M OS) MDV (Flu Clinic Only) 08/03/2020 COVID-19 vaccine ([employer] 30mcg/0.3mL) PF, MDV 02/13/2021,01/23/2021 DTP 04/08/1991, 7,06/14/1986,1985,02/06/1986 [...] file 11/27/2023 Food Insecurity Answer Date Recorded Do you worry your food will run out before you are able to buy more? 2 11/27/2023 Transportation Needs Answer Date Record ed Lack of Transportation (Medical) 1 11/27/2023 Housing Stability Answer Date Recorded What is your housing situation today? 1 11/27/2023 Sex and Gender Information Value [...] T Respiratory Rate 18 09/29/2018 2:05 PM INFORMATION TECHNOLOGY ANALYST Oxygen Saturation 99% 01/13/2024 10:57 AM CDT Inhaled Oxygen Concentration - - Weight 86.2 kg (190 lb) 03/11/2024 1:05 PM CDT Height 170.2 cm (5' 7) 12/11/2023 1:30 PM INFORMATION TECHNOLOGY ANALYST Body Mass Index 29.76 12/11/2023 1:30 PM INFORMATION TECHNOLOGY ANALYST Plan of Treatment Scheduled Procedures Name Priority Associated Diagnoses Date/Ti me SURGICAL PROCEDURE (TYPE PROCEDURE DESCRIPTION BELOW) Elective ALLEN II (cervical intraepithelial neoplasia II) Health Maintenance Due Date Last Done Comments Pneumococcal series for age 6-64 (1 of 2 - PCV) 12/07/1991 COVID-19 vaccine series ( - season) 2024 02/13/2021, 01/23/2021 Influenza for age 9-49 06/05/2024 [...] Additional history exists Tetanus booster 05/23/2026 05/23/2016, 0 06/2015, 09/12/2008, Additional history exists Tdap Completed 05/23/2016, 0 06/2015, 09/12/2008 HIV for age 15-65 Completed 11/04/2023 Hepatitis C screening for ag e 18-79 Completed 11/04/2023 Procedures Procedure Name Priority Date/Time Associated Diagnosis Comments HPV HIGH RISK Routine 11/04/2023 3:00 PM INFORMATION TECHNOLOGY ANALYST Cervical cancer screening ANTI HIV 1/2 Routine 11/04/2023 1:55 PM INFORMATION TECHNOLOGY ANALYST Anogenital warts Exposure to syphilis ANTI HCV Routine 11/04/2023 1:55 PM INFORMATION TECHNOLOGY ANALYST Anogenital warts Exposure to syphilis from Last 3 Months or Most Recently Relevant to Health Maintenance Results * (ABNORMAL) HPV HIGH RISK (11/04/2023 3:00 PM INFORMATION TECHNOLOGY ANALYST) TYPE 16 Positive(A) Negative 11/09/2023 3:17 PM INFORMATION TECHNOLOGY ANALYST [facility] TYPE 18 Negative Negative 11/09/2023 3:17 PM INFORMATION TECHNOLOGY ANALYST [facility] OTHER HIGH RISK TYPES Negative Negative 11/09/2023 3:17 PM INFORMATION TECHNOLOGY ANALYST [facility] Other (Cervical/Vagina l) Non-Blood / Unknown 11/04/2023 3:00 PM INFORMATION TECHNOLOGY ANALYST 11/05/2023 1:54 PM INFORMATION TECHNOLOGY ANALYST Narrative [facility] - 11/09/2023 3:17 PM INFORMATION TECHNOLOGY ANALYST Specimen is positive for HPV type 16 DNA. ??HPV types 18, 31, 33, 35, 39, 45, 51, 52, 56, 58, 59, 66 and 68 DNA were undetectable or below the pre-set threshold Methodology: Petra Patrice 4800 HPV Test Eli Roque MD MICROBIOLO GY [facility] [address] [place] [address], * ANTI HCV (11/04/2023 1:55 PM INFORMATION TECHNOLOGY ANALYST) HEPATITIS C ANTIBODY Non-Reacti ve Non-React ismael 11/05/2023 8:13 PM INFORMATION TECHNOLOGY ANALYST [facility] Comment:Please note, per www .CDC.gov: If a patient is known to be at high risk of HCV infection, or is symptomatic, and the physician's suspicion of HCV infection is high, HCV RNA testing is often employed and is of diagnostic value, even after an initial negative anti-HCV test result. Blood BLOOD SPECIMEN / Unknown Butterfly / Unknown 11/04/2023 1:55 PM INFORMATION TECHNOLOGY ANALYST 11/04/2023 3:56 PM INFORMATION TECHNOLOGY ANALYST Eli Roque MD [facility] [address] [place] [address], [place] * ANTI HIV 1/2 (11/04/2023 1:55 PM INFORMATION TECHNOLOGY ANALYST) HIV-1/HIV-2 SCREEN Non-Reacti ve Non-Reacti ve 11/05/2023 6:17 PM INFORMATION TECHNOLOGY ANALYST [facility] Comment:HIV-1 p24 and HIV-1/ HIV-2 Ab Not Detected. Blood BLOOD SPECIMEN / Unknown Butterfly / Unknown 11/04/2023 1:55 PM INFORMATION TECHNOLOGY ANALYST 11/04/2023 3:56 PM INFORMATION TECHNOLOGY ANALYST Eli Roque MD [facility] [address] [place] [address], [place] from Last 3 Months or Most Recently Relevant to Health Maintenance Care Teams Color Paste Mixer Relationship Specialty Start Date End Date Eli Roque MD [address] [place] [address] PCP - General Family Practice 12/11/23 Hortencia Brasher MD [address] [facility] [address] [place] [address] Psychiatry Psychiatry 04/01/18
--- OUTSIDE RECORDS SUMMARY | 2024-07-29 19:18 | XMS_ITS | Encounter Summary ---
Author Organization [place] Address [address] [facility] [place] [address] Care Team Providers Care Shackler Name Role Phone Esha Vicente MD Primary Care Provider Esha Vicente MD Unavailable [phone] Esha Vicente MD Unavailable [phone] Reason for Visit * Reason Onset Date Comments Refill Request 10/14/2017 Encounter Details Date Type Department Care Team (Late st Contact Info) Description 10/14/2017 MyC Evan M [address] [phone] [place] [address] [place] [address] Refill Request Social History Tobacco Use Types [...] on file Legal Sex Female 4:19 AM CUSTOMS PATROL OFFICER Gender Identity Not on file Sexual Orientation Not on file documented as of this encounter Plan of Treatment Not on file documented as of this encounter Visit Diagnoses Diagnosis JIMMY (generalized anxiety disorder) Generalized anxiety disorder documented in this encounter Additional Health Concerns Assessment Noted Time PHQ-9 Depression Total Score: 14 017 7:19 AM CDT documented as of this encounter Care Teams Shackler Relationship Specialty Start Date End Date Esha Vicente MD PCP - General Family Practice 02/10/17 [place] [address] [facility] [place] [address] PCP - Assigned PCP 06/22/11 12/07/18 [place] [address] [facility] [place] [address] Assigned PCP 07/08/12 02/08/22 Andres Gibbons MA, [facility] [address] [place] [address]. [id number] Therapist Licensed Mental Health 10/05/23 documented as of this encounter
--- OUTSIDE RECORDS SUMMARY | 2024-07-29 19:18 | XMS_ITS | Encounter Summary ---
Author Organization [place] Address [address] [facility] [place] [address] Care Team Providers Care Foreign Exchange Clerk Name Role Phone Esha Vicente MD Primary Care Provider [phone] None Primary Care Provider UnavailEsha Watkins MD Primary Care Provider [phone] None Primary Care Provider UnavailEsha Watkins MD Primary Care Provider + [phone] Esha Vicente MD Unavailable Esha Vicente MD Unavailable Encounter Details Date Type Department Care Team (Late st Contact Info) Description 08/10/2006 [facility] [place] [address] [place], [place] [address] Antepartum Outpatient Record Social History Tobacco Use [...] on file Legal Sex Female 4:19 AM GAMBLING COUNSELLOR Gender Identity Not on file Sexual Orientation Not on file documented as of this encounter Plan of Treatment Not on file documented as of this encounter Visit Diagnoses Not on filedocumented in this encounter Care Teams Foreign Exchange Clerk Relationship Specialty Start Date End Date Esha Vicente MD PCP - General 04/14/06 05/22/16 None PCP - General 05/23/16 09/17/16 Esha Vicente MD PCP - General Family Practice 09/18/16 12/28/16 None PCP - General 12/29/16 02/09/17 Esha Vicente MD PCP - General Family Practice 02/10/17 [place] [address] [place] [address] PCP - Assigned PCP 06/22/11 12/07/18 [place] [address] [place] [address] Assigned PCP 07/08/12 02/08/22 Andres Gibbons MA, [facility] [address] [address] Therapist Licensed Mental Health 10/05/23 documented as of this encounter
--- OUTSIDE RECORDS SUMMARY | 2024-07-29 19:18 | XMS_ITS | Clinical Summary ---
Author Organization [facility] Address [address] [facility] [place] [address] Care Team Providers Care Paper Sealer Name Role Phone Esha Vicente MD Primary Care Provider [phone] Allergies No known active allergies Medications busPIRone [...] live 04/08/1991,06/03/19 87,04/10/1986, 986 TDAP Vaccine (Adacel) 05/23/2016,11/13/2014,12/0 06/2008 Tetanus 09/12/2009,10/05/1997,06/01/1997 Varicella 05/17/1999,03/08/1999 Family History Medical [...] on file Legal Sex Female 4:19 AM BARK PEELER Gender Identity Not on file Sexual Orientation Not on file Last Filed Vital Signs Vital Sign Reading Time Taken Comments Blood Pressure 114/81 10/06/2023 12:16 AM BARK PEELER Pulse 95 10/06/2023 12:16 AM BARK PEELER Temperature 35.9 ??C (96.7 ??F) 10/05/2023 8:19 PM CS T Respiratory Rate 20 10/05/2023 8:19 PM BARK PEELER Oxygen Saturation 97% 10/06/2023 12:16 AM BARK PEELER Inhaled Oxygen Concentration - - Weight 78.1 [...] Additional history exists YEARLY PREVENTIVE VISIT 08/16/2022 08/16/20 21, 03/16/2018, 10/30/2017, Additional history exists COVID-19 Vaccine ( season) 2024 02/13/2021, 01/23/2021 INFLUENZA VACCINE (#1) 2024 , 08/03/2020, 11/11/2019, Additional history exists DTAP/TDAP/TD IMMUNIZATION (10 - Td or Tdap) 05/23/2026 05/23/2016, 11/13/2014, 09/12/2009, Additional history exists GLUCOSE 10/05/2026 10/05/2023, 02/2018, 02/20/2017, Additional history exists RSV VACCINE (1 - 1-dose 75+ series) 2060 HEPATITIS B IMMUNIZATION Completed 002, 07/11/2002, 07/11/2002, Additional history exists HEPATITIS C SCREENING Completed 07/31/2008, 008 MIGRAINE ACTION PLAN Completed 03/04/2013 DEPRESSION ACTION PLAN Completed 8, 03/16/2018, 01/05/2017, Additional history exists HIV SCREENING Completed 02/07/2019, 06/0 04/2016, 06/19/2014, Additional history exists HPV IMMUNIZATION [...] BASIC METABOLIC PANEL STAT 10/05/2023 10:40 PM BARK PEELER HIV ANTIGEN ANTIBODY COMBO Routine 02/07/2019 2:53 [...] * Basic metabolic panel (10/05/2023 10:40 PM BARK PEELER) Sodium 138 135 - 145 mmol/L 10/05/2023 11:10 PM BARK PEELER [facility] Comment:Reference intervals for this test were updated on 06/30/2023 to more accurately reflect our healthy population. There may be differences in the flagging of prior results with similar values performed with this method. Interpretation of those prior results can be made in the context of the updated reference intervals. Potassium 3.8 3.4 - 5.3 mmol/L 10/05/2023 11:10 PM BARK PEELER [facility] Chloride 100 98 - 107 mmol/L 10/05/2023 11:10 PM BARK PEELER [facility] Carbon Dioxide (CO2) 24 22 - 29 mmol/L 10/05/2023 11:10 PM BARK PEELER [facility] Anion Gap 14 7 - 15 mmol/L 10/05/2023 11:10 PM BARK PEELER [facility] Urea Nitrogen 11.1 6.0 - 20.0 mg/dL 10/05/2023 11:10 PM [facility] Creatinine 0.70 0.51 - 0.95 mg/dL 10/05/2023 11:10 PM [facility] GFR Estimate >90 >60 mL/min/1. 73m2 10/05/2023 11:10 PM [facility] Calcium 9.1 8.6 - 10.0 mg/dL 10/05/2023 11:10 PM [facility] Glucose 92 70 - 99 mg/dL 10/05/2023 11:10 PM [facility] Blood BLOOD SPECIMEN / Unknown Venipuncture / Unknown 10/05/2023 10:40 PM BARK PEELER 10/05/2023 10:44 PM BARK PEELER us Lita Sher MD LAB - BLOOD ORDERABLES Final Res ult [facility] [address] [phone] * HIV Antigen Antibody Combo (02/07/2019 2:53 PM CDT) HIV Antigen Antibody Combo Nonreactive NR^Nonrea ctive 02/08/2019 11:40 AM CDT [facility] Comment:HIV-1 p24 Ag & HIV-1 /HIV-2 Ab Not Detected Blood specimen (specimen) 02/07/2019 2:53 PM CDT 02/07/2019 2:54 PM CDT us Esha Vicente MD LAB - BLOOD ORDERABLES Final Result [facility] [address] [place] [address] * HPV High Risk Types DNA Cervical (03/16/2018 11:15 AM CDT) HPV Source [facility] 03/16/2018 11:06 AM CDT [facility] HPV 16 DNA Negative NEG^Nega tive 03/22/2018 12:40 PM CDT [facility] HPV 18 DNA Negative NEG^Nega tive 03/22/2018 12:40 PM CDT [facility] Other HR HPV Negative NEG^Nega tive 03/22/2018 12:40 PM CDT [facility] Final Diagnosis This patient's sample is negative for HPV DNA. 03/22/2018 12:40 PM CDT [facility] Comment: This test was developed and its performance characteristics determined by the [facility], Molecular Diagnostics Laboratory. It has not [...] Description Cervical Cells 03/19/2018 9:19 AM CDT [facility] Comment:[id number] Cervical Cells 03/16/2018 11 :15 AM CDT 03/16/2018 11:41 AM CDT us Esha Vicente MD LAB - BLOOD ORDERABLES Final Result [facility] [address] [place] [address] [address] * Pap imaged thin layer screen with HPV - recommended age 30 - 65 (03/16/2018 11:06 AM CDT) PAP JON Shannon Report Patient Name: SCARLET ENGLISH MR#: [id number] Specimen #: [id number] Collected: 03/16/2018 Received: 03/17/2018 Reported: 03/18/2018 10:21 [...] STERLING Gage (ASCP) Processed and screened at [facility] CLINICAL HISTORY: LMP: 02/27/2018 Previous normal pap Date of Last Pap: 06/19/2014, Papanicolaou Test Limitations: ??Cervical cytology is a screening test with limited sensitivity; regular screening is critical for cancer prevention; Pap tests are primarily effective for the diagnosis/preventi on of squamous cell carcinoma, not adenocarcinomas or other cancers. TESTING LAB LOCATION: [address] [phone] COLLECTION SITE: Client: ?? [facility] Location: [facility] Cytologic material (specimen) 03/16/2018 11:06 AM CDT 03/17/2018 9:30 AM CDT us Esha Vicente MD LAB - OPTIME CLINICAL SPECIM EN Final Result [facility] * HCV ANTIBODY (07/31/2008 3:11 PM CDT) Hepatitis C Antibody Negative NEG [facility] 07/31/2008 3:11 PM CDT 07/31/2008 3:12 PM CDT us Esha Vicente MD LABORATORY Final Result [address] [address] from Last 3 Months or Most Recently Relevant to Health Maintenance Care Teams Paper Sealer Relationship Specialty Start Date End Date Esha Vicente MD PCP - General Family Practice 02/10/17 Andres Gibbons MA, [facility] [employer] [facility] [address] [place] [address]. [id number] Therapist Licensed Mental Health 10/05/23
--- OUTSIDE RECORDS SUMMARY | 2024-07-29 19:18 | XMS_ITS | Encounter Summary ---
Author Organization [facility] Address [address] [facility] [address] Care Team Providers Care Senior Cisco Network Engineer Name Role Phone Esah Vicente MD Primary Care Provider [phone] None Primary Care Provider Unavailabl e Esha Vicente MD Primary Care Provider + [phone] None Primary Care Provider Unavailabl e Esha Vicente MD Primary Care Provider + [phone] Esha Vicente MD Unavailable [phone] Esha Vicente MD Unavailable [phone] Encounter Details Date Type Department Care Team (Late st Contact Info) Description 06/28/2009 Abstract [facility] Abstract, Provider Social History Tobacco Use Types Packs/Day Years Used Date Smoking Tobacco: Every Day Cigarettes Alcohol Use Standard Drinks/Week Comments No 0 (1 standard drink = 0.6 oz pur e alcohol) Comments No Sex and Gender Information Value Date Recorded Sex Assigned at Not on file Legal Sex Female 4:19 AM SCALDER Gender Identity Not on file Sexual Orientation Not on file documented as of this encounter Plan of Treatment Not on file documented as of this encounter Visit Diagnoses Not on filedocumented in this encounter Care Teams Senior Cisco Network Engineer Relationship Specialty Start Date End Date Esha Vicente MD PCP - General 04/14/06 05/22/16 None PCP - General 05/23/16 09/17/16 Esha Vicente MD PCP - General Family Practice 09/18/16 12/28/16 None PCP - General 12/29/16 02/09/17 Esha Vicente MD PCP - General Family Practice 02/10/17 [place] [address] [facility] [place] [address] PCP - Assigned PCP 06/22/11 12/07/18 [place] [address] [facility] [place] [address] Assigned PCP 07/08/12 02/08/22 Andres Gibbons MA, [address] [address] Therapist Licensed Mental Health 10/05/23 documented as of this encounter
--- OUTSIDE RECORDS SUMMARY | 2024-07-29 19:18 | XMS_ITS | Encounter Summary ---
Author Organization [place] Address [address] [facility] [place] [address] Care Team Providers Care Personal Computer Network Engineer Name Role Phone Esha Vicente MD Primary Care Provider Esha Vicente MD Unavailable Esha Vicente MD Unavailable Reason for Visit * Reason Onset Date Comments Refill Request 10/14/2017 Encounter Details Date Type Department Care Team (Late st Contact Info) Description 10/14/2017 MyC Evan M [address] [phone] Yuridia Little, CROCODILE FARMER [employer]PA[employer]ER [address] [place] [address] Refill Request Social History Tobacco Use Types [...] on file Legal Sex Female 4:19 AM VISUAL DESIGNER Gender Identity Not on file Sexual Orientation Not on file documented as of this encounter Miscellaneous Notes * Telephone Encounter - Esha Vicente MD - 10/14/2017 12:57 PM CSTMessage from MyChart: Yuridia Little APRN CNP ThuOct 14, 2017 12:37 PM ----- Message ----- From: Scarlet Dalton Sent: 10/14/2017 12:26 PM To: All Andrew Md's Subject: Medication Renewal Request Original authorizing provider: PRAKASH Raman CNP would like a refill of the following medications: LORazepam (ATIVAN) 0.5 MG tablet [Yuridia Little APRN CNP] Preferred pharmacy: [facility] [id number] [facility] Comment: Medication renewals requested in this message routed to other providers: sertraline (ZOLOFT) 50 MG tablet [Esha Vicente MD] AL DESIGNER documented in this encounter Plan of Treatment Not on file documented as of this encounter Visit Diagnoses Diagnosis JIMMY (generalized anxiety disorder) Generalized anxiety disorder documented in this encounter Additional Health Concerns Assessment Noted Time PHQ-9 Depression Total Score: 14 017 7:19 AM CDT documented as of this encounter Care Teams Personal Computer Network Engineer Relationship Specialty Start Date End Date Esha Vicente MD PCP - General Family Practice 02/10/17 [place] [address] [facility] [place] [address] PCP - Assigned PCP 06/22/11 12/07/18 [place] [address] [facility] [place] [address] Assigned PCP 07/08/12 02/08/22 Andres Gibbons MA, [facility] [employer] [facility] [address] [place] [address]. [id number] Therapist Licensed Mental Health 10/05/23 documented as of this encounter
[2024-07-29 19:27] VITALS: BP 131/81; PULSE 107; RESP 16; TEMP 36.6
== END 2024-07-29 19:28 | disposition home or self-care (01) ==
PROVIDERS: Emergency Provider Family Medicine; PCP Family Medicine; Visit Provider Family Medicine
DX: L60.0 Ingrowing nail (principal); N30.00 Acute cystitis without hematuria
CPT/HCPCS: 81001; 81003; 87086; 87186; 99282; 99284